=== PATIENT | female | born 1955 | race Caucasian/White ===

== ENCOUNTER 2018-04-17 06:36 | Day surgery (SDC) | payer OTHER, SELFPAY ==
[2018-04-14 15:03] VITALS: BMI 30.1
[2018-04-17] VITALS (9 sets, daily range): BP systolic 134–165; BP diastolic 75–95; PULSE 61–75; RESP 15–22; TEMP 36.4–36.6; O2SAT 92–99; BMI 30.1
[2018-04-17] MEDS: LACTATED RINGERS 1,000 ML 42 ML IV (07:38)
--- NOTE | 2018-04-17 07:59 | PM.PREOP ---
Pre-operative Note Interval Note Pre-op Check: History & Physical Reviewed by Physician H&P completed within 30 days and has changed as indicated here:: No Changes.
[2018-04-17] MEDS: CEFAZOLIN 2 GM/100 ML FROZ.PIGGY IV (08:02)
--- NOTE | 2018-04-17 08:23 | SUR.OPER ---
Supine on padded OR bed, head on pillow, arms secured on padded arm boards at <90 degrees abduction, right leg draped free, tape over blanket on left leg, safety belt at abdomen.
[2018-04-17] MEDS: MORPHINE-PF 10 MG/10 ML INJ INTRA-ARTI (08:33)
[2018-04-17] MEDS: SODIUM CHLORIDE IRRIG SOLUTION 3,000 ML, EPINEPHrine 1 MG IRR (08:34)
[2018-04-17] MEDS: ROPIVACAINE 0.2% PF 2 MG/ML 10ML AMP 10 ML INTRA-ARTI (08:35)
[2018-04-17] MEDS: fentaNYL 100 MCG/2 ML INJ 50 MCG IV ×4 (09:10→09:35)
--- NOTE | 2018-04-17 09:24 | P.OP_ITS ---
Operative Date/Time/Diagnoses - Date of procedure: 04/17/18 Time of procedure: 08:21 Pre-op diagnosis: Right knee medial meniscus tear Post-op diagnosis: other (Right knee medial meniscus tear, right knee patellar chondromalacia) Procedure & Clinicians Procedure: 1. Right knee arthroscopy with partial medial meniscus debridement with medial femoral condyle and medial tibial plateau chondroplasty. 2. Right knee arthroscopy with patellar chondroplasty. Same procedure as scheduled: No (Patellar chondroplasty added to procedure) Indications: This is a 62-year-old female who had right knee pain that began insidiously in October of 2017. Pain was primarily in the posterior aspect of the knee. She also reported feeling of fullness. She continued to have pain despite activity modification and home exercise plan. Her primary care provider obtained an MRI that showed a medial meniscus posterior horn tear as well as tricompartmental degenerative changes. The risks benefits indications expectations of treatment option were discussed with the patient. The risks of surgery to include but not limited to infection, bleeding, damage to neurovascular structures, persistent or worsening pain especially in the setting of arthritis, stiffness, recurrent meniscal tears, deep vein thrombosis , pulmonary embolism, iatrogenic chondromalacia, loss of limb and loss of life were discussed with the patient. All questions were answered, the patient elected to proceed with surgery and informed consent was obtained. Surgeon: Caitlin Astudillo Yes if Unassisted: Yes Anesthesia Type: General (LMA) and Local (5 mg of Duramorph and 5 mg of 0.2 opivacaine without epinephrine.) Operative Notes Findings: 1. Diffuse grade 3 with focal grade 4 chondromalacia of the patella. 2. Grade 2 chondromalacia of the trochlea. 3. Diffuse grade 4 chondromalacia of the medial femoral condyle. 4. Diffuse grade 2 and 3 chondromalacia of the tibial plateau. 5. Root tear of the medial meniscus as well as fraying of the medial meniscal margin at the body. 6. Grade 2 chondromalacia of the lateral tibial plateau. 7. 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 Closure Type: primary Specimen(s): none sent Implants & Drains: None. Estimated Blood Loss (mL): 1 Blood products transfused: none Tourniquet time (min): 0 Procedure in detail: The patient was met in the preoperative hold area on the morning of surgery were reconfirmed that we had the correct patient, we will plan to do the correct procedure and had the correct extremity which was the right lower extremity identified. Prior to the patient receiving any medications the operative extremity was initialed by the surgeon. The patient was then brought back to the operating room in stable condition and placed supine on the operating room table. All bony prominences were well padded and sequential compression devices placed on the nonoperative leg. General anesthesia was induced without complication and LMA was placed. The right lower extremity was then examined under anesthesia and found to have range of motion from 0-135 degrees, was stable to varus and valgus at both 0 and 30?, had negative anterior and negative posterior drawer and negative pivot shift. The right lower extremity was then prepped and draped in the usual sterile fashion. After final draping additional ChloraPrep was utilized on the operative site. We then held a surgical time-out we confirmed that we had the correct patient, we were planning to do the correct procedure and had the correct extremity which was the right lower extremity identified. We also confirmed the patient received preoperative antibiotics, that all necessary gear was in the room and confirmed sterile and that no members of the operative team had any concerns. I began making a standard anterior lateral portal by 1st sharply incising the skin within the #11 blade and then inserting a trocar with a blunt introducer into the patellofemoral joint. I then inserted the camera and began my examination. Immediately on entering the patellofemoral compartment degenerative joint changes of the patella were identified with diffuse grade 3 and 4 chondromalacia. The trochlea had grade 2 chondromalacia. I then examined the lateral gutter which was without loose bodies. I then continued on to the medial compartment, where under direct visualization I made a standard anterior medial portal again by incising with a #11 blade. I then introduced the blunt introducer to further establish the portal. I then induced a probe to continue examination. There is diffuse grade 4 chondromalacia of the medial femoral condyle. There was diffuse grade 3 chondromalacia of the tibial plateau. The free edge of the medial meniscus at the body had some fraying. The posterior horn of the medial meniscus was torn and had abnormal motion. I then inserted a sucker shaver and debrided the loose cartilage from the medial femoral condyle. I then inserted a biter and debrided the posterior horn of the medial meniscus. I inserted a sucker shaver to further debride and clean the medial meniscus to include the fraying on the free edge. I then continued my examination to the notch which showed the ACL and PCL to be intact. I then continued into the lateral compartment where there was some focal grade 2 chondromalacia of the lateral tibial plateau. Lateral meniscus was intact and the lateral femoral condyle was without significant lesions. I then brought the knee out to extension and inserted a sucker shaver and debrided the patella of any loose cartilage. I then removed all arthroscopic equipment. The portals were closed utilizing 3-0 Biosyn in a buried fashion. Placed Mastisol and Steri-Strips over each of the portal incisions. I then injected the knee with 5 mg of Duramorph and 5 mg of 0.2% ropivacaine without epinephrine. I then dressed the wounds with sterile Xeroform , plain gauze and an ABD pad. I then placed a Mathew hose over the dressing. All sponge counts and needle counts were correct at the conclusion of the case. The patient was woken from general anesthesia without complication taken to the PACU in stable condition. Complications: none Condition: stable Disposition: PACU Plan for aftercare: Patient will be discharged home same day of surgery. She may weightbear as tolerated on her right lower extremity and may range her right knee as tolerated. I will see the patient back in 10-14 days for wound check at which time we will initiate physical therapy.
[2018-04-17] MEDS: OXYCODONE/ACETAMINOPHEN 5/325 TABLET 1 TAB PO (09:39)
[2018-04-17] MEDS: ONDANSETRON 4 MG/2 ML INJ IV (10:26)
--- NOTE | 2018-04-17 10:27 | SUR.PHASEII ---
c/o mild nause. zofran per orders. also queaze ease provided.
--- NOTE | 2018-04-17 10:30 | SUR.PHASEII ---
states nausea is resolving.
--- NOTE | 2018-04-17 10:40 | SUR.PHASEII ---
now vomiting. sates feels better after vomiting. discharge on hold at this time. will evaluate for furthur vomiting or resolution.
--- NOTE | 2018-04-17 11:03 | SUR.PHASEII ---
up ambulatory in department tolerating without difficulty, good pain control nausea resolved. discharged home.
== END 2018-04-17 11:04 | disposition home or self-care (01) ==
PROVIDERS: Visit Provider Orthopaedic Surgery
PROC: (CPT 29870; principal; 2018-04-17 07:45)
DX: S83.241A Other tear of medial meniscus, current injury, right knee, initial encounter (principal); M22.41 Chondromalacia patellae, right knee; M94.261 Chondromalacia, right knee
CPT/HCPCS: 29881; J0171; J0690; J1100; J2274; J2405; J2704; J2795; J3010

== ENCOUNTER 2018-06-06 17:41 | Emergency (ER) | payer OTHER, SELFPAY ==
[2018-06-06 18:05] VITALS: BP 140/80; PULSE 81; RESP 20; TEMP 36.6; O2SAT 98
--- NOTE | 2018-06-06 18:35 | ED.PREGNANCY ---
HPI - General Chief complaint: Urogenital-Female Stated complaint: BLADDER INFEC Time Seen by Provider: 06/06/18 18:35 Source: patient Mode of arrival: ambulatory Limitations: no limitations History of Present Illness HPI Narrative: 62-year-old female here for complaint of having increased urinary frequency and dysuria that started this afternoon. She states that she feels like she has urinary tract infection. Denies any abdominal pain. No flank pain. No fevers no chills. Positive p.o. intake. She denies any nausea or vomiting. She denies any other concerns or complaints. Related Data Home Medications Medication Instructions Recorded Confirmed levothyroxine [Synthroid] 75 mcg PO DAILY 04/14/18 04/17/18 pravastatin 40 mg PO BEDTIME 04/14/18 04/17/18 Allergies Allergy/AdvReac Type Severity Reaction Status Date / Time No Known Drug Allergies Allergy Verified 04/14/18 15:06 Review of Systems Constitutional Denies chills, Denies fever(s), Denies lethargy and Denies weakness Eyes Denies change in vision, Denies eye discharge, Denies irritation and Denies loss of vision ENT Ears, Nose, Mouth, and Throat: Denies change in voice, Denies neck pain and Denies sore throat Cardiovascular Denies chest pain, Denies irregular heart rhythm, Denies lightheadedness, Denies palpitations, Denies dyspnea, Denies dyspnea on exertion and Denies orthopnea Respiratory Denies cough, Denies dyspnea, Denies dyspnea on exertion and Denies wheezing Gastrointestinal Gastrointestinal: Denies abdominal pain, Denies change in bowel habits, Denies diarrhea, Denies nausea and Denies vomiting Genitourinary Reports dysuria Musculoskeletal Denies neck pain Neurologic Denies loss of vision and Denies weakness Endocrine Denies palpitations Allergic/Immunologic Denies wheezing Exam Initial Vital Signs Initial Vital Signs: Vital Signs Temperature 97.8 F 06/06/18 18:05 Pulse Rate 81 06/06/18 18:05 Respiratory Rate 20 06/06/18 18:05 Blood Pressure 140/80 H 06/06/18 18:05 Pulse Oximetry 98 06/06/18 18:05 Course Orders Ordered: ED Orders 06/06/18 18:10 Urine Culture Stat Urine Microscopic Stat Vital Signs - 8 hr 06/06/18 18:05 Temperature 97.8 F Pulse Rate 81 Respiratory Rate 20 Blood Pressure 140/80 H Pulse Oximetry 98 MDM - OB/Uterine Contractions Lab Data Lab Results 06/06/18 Range/Units 18:10 Urine RBC 30-100/hpf H (0-5/HPF) Urine WBC 30-100/hpf H (0-5/HPF) Ur Squamous Epith Cells None seen Urine Bacteria Moderate (10-30) H (None) Ur Culture Indicated? Specimen cultured Micro UA Comment Not Reportable Discharge Plan Departure Prescriptions: No Action pravastatin 40 mg Tablet 40 mg PO BEDTIME RF: 0 levothyroxine [Synthroid] 75 mcg Tablet 75 mcg PO DAILY RF: 0
[2018-06-06 18:36] LABS: Bacteria Urine Moderate (10-30); Culture Indicated Urine Specimen Cultured; RBC Urine 30-100/HPF (0-5/HPF); Squamous Epithelial Cell Urine None Seen; WBC Urine 30-100/HPF (0-5/HPF)
--- NOTE | 2018-06-06 18:50 | ED.FEMALEGU ---
HPI - Female Genitourinary <LEXI Carmona - Last Filed: 06/06/18 22:36> General Chief complaint: Urogenital-Female Stated complaint: BLADDER INFEC Time Seen by Provider: 06/06/18 18:35 Source: patient Mode of arrival: ambulatory Limitations: no limitations History of Present Illness HPI Narrative: 62-year-old female here for complaint of having increased urinary frequency and dysuria that started this afternoon. She states that she feels like she has urinary tract infection. Denies any abdominal pain. No flank pain. No fevers no chills. Positive p.o. intake. She denies any nausea or vomiting. She denies any other concerns or complaints. MD Complaint: UTI Related Data Home Medications Medication Instructions Recorded Confirmed levothyroxine [Synthroid] 75 mcg PO DAILY 04/14/18 04/17/18 pravastatin 40 mg PO BEDTIME 04/14/18 04/17/18 Previous Rx's Medication Instructions Recorded nitrofurantoin monohyd/m-cryst 100 mg PO BID #13 cap 06/06/18 [Macrobid] phenazopyridine [Pyridium] 200 mg PO TID PRN #5 tab 06/06/18 Allergies Allergy/AdvReac Type Severity Reaction Status Date / Time No Known Drug Allergies Allergy Verified 04/14/18 15:06 Review of Systems <LEXI Carmona - Last Filed: 06/06/18 22:36> Constitutional Denies chills, Denies fever(s), Denies lethargy and Denies weakness Eyes Denies change in vision, Denies eye discharge, Denies irritation and Denies loss of vision ENT Ears, Nose, Mouth, and Throat: Denies change in voice, Denies neck pain and Denies sore throat Cardiovascular Denies chest pain, Denies irregular heart rhythm, Denies lightheadedness, Denies palpitations, Denies dyspnea, Denies dyspnea on exertion and Denies orthopnea Respiratory Denies cough, Denies dyspnea, Denies dyspnea on exertion and Denies wheezing Gastrointestinal Gastrointestinal: Denies abdominal pain, Denies change in bowel habits, Denies diarrhea, Denies nausea and Denies vomiting Genitourinary Reports dysuria Musculoskeletal Denies neck pain Integumentary/Breasts Denies pruritus, Denies erythema, Denies rash and Denies wounds Neurologic Denies confusion, Denies loss of vision and Denies weakness Psychiatric Denies anxiety, Denies confusion, Denies depression, Denies homicidal ideation and Denies suicidal ideation Endocrine Denies palpitations Hematologic/Lymphatic Denies easy bruising Allergic/Immunologic Denies wheezing Exam <LEXI Carmona - Last Filed: 06/06/18 22:36> Initial Vital Signs Initial Vital Signs: Vital Signs Temperature 97.8 F 06/06/18 18:05 Pulse Rate 81 06/06/18 18:05 Respiratory Rate 20 06/06/18 18:05 Blood Pressure 140/80 H 06/06/18 18:05 Pulse Oximetry 98 06/06/18 18:05 Const General: cooperative and well developed Nutritional Appearance: well nourished Orientation: alert, awake, oriented x3 and not confused HENNE Mouth: oral mucosae normal and moist mucous membranes Eyes Conjunctivae: conjunctivae normal Sclera: sclerae normal Pupils: PERRL EOM: EOM intact bilaterally Resp Effort & Inspection: normal respiratory effort, able to speak in complete sentences, no respiratory distress and no use of accessory muscles Auscultation: clear to auscultation bilaterally, no rales, no rhonchi and no wheezes Cardio Rate: regular rate Rhythm: regular rhythm Heart Sounds: no click, no gallops, no murmurs and no rubs Pulses: normal peripheral pulses GI Inspection: non-distended Palpation: soft, no hepatosplenomegaly, No guarding, No pulsatile mass and No tender Auscultation: normal bowel sounds Back/Spine/Pelvis Back: No CVA tenderness Skin General: no rashes or lesions noted, No jaundice and No petechiae Neuro General: alert, oriented x3, gait normal and no focal motor deficits Speech: speech normal <Amberly Almazan DO - Last Filed: 06/07/18 00:22> Initial Vital Signs Initial Vital Signs: Vital Signs Temperature 97.8 F 06/06/18 18:05 Pulse Rate 81 06/06/18 18:05 Respiratory Rate 20 06/06/18 18:05 Blood Pressure 140/80 H 06/06/18 18:05 Pulse Oximetry 98 06/06/18 18:05 Course <LEXI Carmona - Last Filed: 06/06/18 22:36> Orders Ordered: ED Orders 06/06/18 18:10 Urine Culture Stat Urine Microscopic Stat Discontinued Medications Nitrofurantoin Macrocrystals (Macrobid 100 Mg Capsule) 100 mg PO NOW ONE Stop: 06/06/18 18:49 Last Admin: 06/06/18 18:53 Dose: 100 mg Phenazopyridine HCl (Pyridium) 200 mg PO NOW ONE Stop: 06/06/18 18:49 Last Admin: 06/06/18 18:53 Dose: 200 mg Vital Signs - 8 hr 06/06/18 18:05 06/06/18 19:09 Temperature 97.8 F 97.8 F Pulse Rate 81 72 Respiratory Rate 20 18 Blood Pressure 140/80 H Blood Pressure [Left Arm] 130/85 H Pulse Oximetry 98 98 <Amberly Almazan DO - Last Filed: 06/07/18 00:22> Orders Ordered: ED Orders 06/06/18 18:10 Urine Culture Stat Urine Microscopic Stat Discontinued Medications Nitrofurantoin Macrocrystals (Macrobid 100 Mg Capsule) 100 mg PO NOW ONE Stop: 06/06/18 18:49 Last Admin: 06/06/18 18:53 Dose: 100 mg Phenazopyridine HCl (Pyridium) 200 mg PO NOW ONE Stop: 06/06/18 18:49 Last Admin: 06/06/18 18:53 Dose: 200 mg Vital Signs - 8 hr 06/06/18 18:05 06/06/18 19:09 Temperature 97.8 F 97.8 F Pulse Rate 81 72 Respiratory Rate 20 18 Blood Pressure 140/80 H Blood Pressure [Left Arm] 130/85 H Pulse Oximetry 98 98 MDM - Female Genitourinary <LEXI Carmona - Last Filed: 06/06/18 22:36> Lab Data Lab Results 06/06/18 Range/Units 18:10 Urine RBC 30-100/hpf H (0-5/HPF) Urine WBC 30-100/hpf H (0-5/HPF) Ur Squamous Epith Cells None seen Urine Bacteria Moderate (10-30) H (None) Ur Culture Indicated? Specimen cultured Micro UA Comment Not Reportable MDM Narrative Medical decision making narrative: Urinalysis was obtained was positive for urinary tract infection. She is prescribed Macrobid. She is also prescribed Pyridium to help with any discomfort for the next couple of days. Follow up with primary care provider later this week. Plenty of fluids. Return emergency room for any worsening symptoms. <Amberly Almazan DO - Last Filed: 06/07/18 00:22> Lab Data Lab Results 06/06/18 Range/Units 18:10 Urine RBC 30-100/hpf H (0-5/HPF) Urine WBC 30-100/hpf H (0-5/HPF) Ur Squamous Epith Cells None seen Urine Bacteria Moderate (10-30) H (None) Ur Culture Indicated? Specimen cultured Micro UA Comment Not Reportable Discharge Plan Departure Patient Disposition: Home, Self-Care Clinical Impression: Urinary tract infection Discharge Date/Time: 06/06/18 19:16 Interventions: ED Discharge Assessment Last Done: 06/06/18 19:16 Instructions: DI for Urinary Tract Infection (UTI) Activity Restrictions/Additional Instructions: Urinalysis indicates urinary tract infection. Urine been placed on antibiotic called Macrobid use as directed. You have also been placed on Pyridium to help with the discomfort with urination also use as directed be advised that the Pyridium will turn your urine orange. Follow up with her primary care provider next week for re-evaluation. Plenty of fluids. First treatments were given in the emergency room this evening due to pharmacies being closed. Fill prescriptions tomorrow morning and take as directed Prescriptions: New phenazopyridine [Pyridium] 200 mg tablet 200 mg PO TID PRN (Reason: pain) Qty: 5 RF: 0 nitrofurantoin monohyd/m-cryst [Macrobid] 100 mg capsule 100 mg PO BID Qty: 13 RF: 0 No Action pravastatin 40 mg Tablet 40 mg PO BEDTIME RF: 0 levothyroxine [Synthroid] 75 mcg Tablet 75 mcg PO DAILY RF: 0 Referrals: Celeste Stock [Primary Care Provider] - <Amberly Almazan DO - Last Filed: 06/07/18 00:22> Cosign ED Attending Michelleature Attestation: I was immediately available in the department for consultation. Documentation has been reviewed. I agree with assessment and plan.
[2018-06-06] MEDS: NITROFURANTOIN ER 100 MG CAPSULE PO (18:53)
[2018-06-06] MEDS: PHENAZOPYRIDINE 100 MG TABLET 200 MG PO (18:53)
[2018-06-06 19:09] VITALS: BP 130/85; PULSE 72; RESP 18; TEMP 36.6; O2SAT 98
== END 2018-06-06 19:16 | disposition home or self-care (01) ==
PROVIDERS: Emergency Provider Nurse Practitioner Family; PCP Nurse Practitioner Family
DX: N39.0 Urinary tract infection, site not specified (principal)
CPT/HCPCS: 81003; 81015; 87077; 87086; 87186; 99282; 99283

== ENCOUNTER → 2018-08-07 09:28 | Outpatient (CLI) | payer OTHER, SELFPAY ==
--- NOTE | 2018-08-07 | DI.MRI.S_ITS ---
PROCEDURE: MR SHOULDER RT W CON INDICATIONS: PAIN IN RIGHT SHOULDER TECHNIQUE: After the administration of 12 mL of dilute intra-articular Gadolinium contrast, oblique coronal T1 and T2 spin echo with fat saturation, oblique sagittal T1 spin echo with and without fat saturation, oblique sagittal T2 fast spin echo with fat saturation, axial T1 spin echo with fat saturation through the shoulder. COMPARISON: None. FINDINGS: Image quality: Excellent. Rotator cuff: There is tendinosis and low-grade articular surface partial-thickness tear involving distal supraspinatus at its insertion on greater tuberosity of humeral head extending to the level of the musculotendinous junction. Distal infraspinatus tendinosis is seen. Distal subscapularis tendon is intact. No full-thickness rotator cuff tendon rupture. Mild supraspinatus muscle atrophy is seen on sagittal images. Bones and bursae: No bone marrow contusions or fractures. Moderate acromioclavicular joint osteoarthritis is seen. Mild glenohumeral joint osteoarthritis is also noted. The acromion demonstrates conventional anatomy, without an os acromiale. Capsule and soft tissues: There is contrast extension into superior anterior labrum at 12 to 1:00 position, consistent with a superior anterior labral tear. Glenohumeral ligaments are intact. long head of the biceps tendon demonstrates normal location and morphology. The rotator interval appears normal, without fibrosis. The coracohumeral ligament is of normal thickness. No intra-articular bodies. IMPRESSION: 1. Findings consistent with superior anterior labral tear at 12 to 1:00 position. 2. Mild to moderate acromioclavicular joint and glenohumeral joint osteoarthritis. No fracture or dislocation. 3. Tendinosis and low to moderately articular surface partial-thickness tear involving distal supraspinatus. Distal infraspinatus tendinosis. No full-thickness rotator cuff tendon rupture. Very mild supraspinatus muscle atrophy. Dictated by: Terrance Harrington M.D. on 08/07/2018 at 11:56 Approved by: Terrance Harrington M.D. on 08/07/2018 at 12:01
--- NOTE | 2018-08-07 | DI.RAD.S_ITS ---
PROCEDURE: FL SHOULDER INJECTION MR/CT RT INDICATIONS: PAIN IN RIGHT SHOULDER TECHNIQUE: The indications, alternatives, benefits, risks, and complications of the procedure were explained to the patient. Written informed consent was obtained and placed in the chart. The shoulder was examined fluoroscopically and a site for needle placement chosen for entry into the glenohumeral joint from an anterior approach. The skin was prepped and draped in a sterile fashion, and 1% lidocaine infiltrated from skin down to joint capsule. A spinal needle was inserted into the glenohumeral joint, and a small amount of iodinated contrast media injected to confirm intra-articular placement of the needle tip. This was followed by approximately 12 mL dilute solution of a gadolinium containing MR contrast agent. The needle was removed and a dressing was applied. The patient was given postprocedural instructions and sent to the MR suite for MR imaging. FINDINGS: A single fluoroscopic spot image demonstrates intra-articular location of injected iodinated contrast. IMPRESSION: Successful fluoroscopically guided administration of dilute Gadolinium solution into the shoulder joint for MR arthrogram. Dictated by: Nori Vang M.D. on 08/07/2018 at 10:30 Approved by: Nori Vang M.D. on 08/07/2018 at 10:30
== END ==
PROVIDERS: PCP Nurse Practitioner Family; Visit Provider Nurse Practitioner Family
DX: M19.011 Primary osteoarthritis, right shoulder (principal); S43.431A Superior glenoid labrum lesion of right shoulder, initial encounter; M25.511 Pain in right shoulder
CPT/HCPCS: 23350; 73040; 73222; 77002

== ENCOUNTER 2018-09-11 08:54 | Emergency (ER) | payer OTHER, SELFPAY ==
[2018-09-11 09:03] VITALS: BP 156/89; PULSE 75; RESP 18; TEMP 36.4; O2SAT 99; BMI 31.8
[2018-09-11 09:08] LABS: Bacteria Urine None Seen
[2018-09-11 09:21] LABS: RBC Urine 5-10/HPF (0-5/HPF); WBC Urine 5-10/HPF (0-5/HPF)
[2018-09-11 09:22] LABS: Culture Indicated Urine Specimen Cultured
--- NOTE | 2018-09-11 09:27 | ED.FEMALEGU ---
HPI - Female Genitourinary General Chief complaint: Urogenital-Female Stated complaint: bladder infection Time Seen by Provider: 09/11/18 09:03 Source: patient Mode of arrival: ambulatory Limitations: no limitations History of Present Illness HPI Narrative: 63-year-old, otherwise healthy nonsmoking female presents with a chief complaint of dysuria, frequency and urgency since yesterday. She denies nausea, vomiting or diarrhea. She has had no back pain nor fever or shaking chills. She has had urinary tract infections in the past and states this feels similar. MD Complaint: dysuria and UTI Onset (ago): day(s) Female Urogenital Radiation: Non-Radiating Severity: mild Quality: Aching and Burning Duration: constant Relieving factors: none Exacerbating factors: urination Urinary symptoms: Difficulty Urinating, Dysuria, Frequency and Urgency Associated symptoms: denies other symptoms Related Data Home Medications Medication Instructions Recorded Confirmed levothyroxine [Synthroid] 75 mcg PO DAILY 04/14/18 04/17/18 pravastatin 40 mg PO BEDTIME 04/14/18 04/17/18 Previous Rx's Medication Instructions Recorded nitrofurantoin monohyd/m-cryst 100 mg PO BID #13 cap 06/06/18 [Macrobid] phenazopyridine [Pyridium] 200 mg PO TID PRN #5 tab 06/06/18 cephalexin [Keflex] 500 mg PO QID #7 cap 09/11/18 Allergies Allergy/AdvReac Type Severity Reaction Status Date / Time No Known Drug Allergies Allergy Verified 04/14/18 15:06 Review of Systems Review of Systems All systems reviewed & are unremarkable except as noted in HPI and below Constitutional Denies chills, Denies fever(s), Denies lethargy and Denies weakness Eyes Denies change in vision, Denies eye discharge, Denies irritation and Denies loss of vision ENT Ears, Nose, Mouth, and Throat: Denies change in voice, Denies neck pain and Denies sore throat Cardiovascular Denies chest pain, Denies irregular heart rhythm, Denies lightheadedness, Denies palpitations, Denies dyspnea, Denies dyspnea on exertion and Denies orthopnea Respiratory Denies cough, Denies dyspnea, Denies dyspnea on exertion and Denies wheezing Gastrointestinal Gastrointestinal: Denies abdominal pain, Denies change in bowel habits, Denies diarrhea, Denies nausea and Denies vomiting Genitourinary Denies hematuria, Reports dysuria, Denies flank pain, Denies urinary incontinence, Reports urinary hesitancy and Reports urinary urgency Musculoskeletal Denies neck pain Integumentary/Breasts Denies pruritus, Denies erythema, Denies rash and Denies wounds Neurologic Denies confusion, Denies loss of vision and Denies weakness Psychiatric Denies anxiety, Denies confusion, Denies depression, Denies homicidal ideation and Denies suicidal ideation Endocrine Denies palpitations Hematologic/Lymphatic Denies easy bruising Allergic/Immunologic Denies wheezing [facility] Medical History GERD (gastroesophageal reflux disease) (Acute) Hyperlipidemia (Acute) Hypothyroidism (Acute) Right knee pain (Acute) Surgical History Hx of cataract surgery (Acute) S/P debridement (Acute) Social History household members: spouse Smoking Status: Never smoker alcohol intake: current Exam Narrative Exam Narrative: GEN: AOx3 and in mild distress EYES: Pupils are equal, round, and reactive to light and accommodation. Extraoccular muscles are intact bilaterally. There is no subconjunctival hemorrhage or exudate. CHEST: Lungs are clear to auscultation bilaterally and free of wheezes, rales, or rhonchi. Heart rate is regular rhythm, there are no murmurs, clicks, rubs, or gallops. There is no chest wall tenderness. ABD: Abdomen is soft and nontender. There is no guarding or rebound. Bowel sounds are normal in all 4 quadrants. There is no mass or organomegaly. EXT: Full painless ROM of all extremities with no loss of sensation or strength. SKIN: Warm, pink, and dry. No erythema or rash Initial Vital Signs Initial Vital Signs: Vital Signs Temperature 97.5 F L 09/11/18 09:03 Pulse Rate 75 09/11/18 09:03 Respiratory Rate 18 09/11/18 09:03 Blood Pressure 156/89 H 09/11/18 09:03 Pulse Oximetry 99 09/11/18 09:03 Course Orders Ordered: ED Orders 09/11/18 08:55 Urine Culture Stat Urine Microscopic Stat Vital Signs - 8 hr 09/11/18 09:03 Temperature 97.5 F L Pulse Rate 75 Respiratory Rate 18 Blood Pressure 156/89 H Pulse Oximetry 99 MDM - Female Genitourinary Lab Data Lab Results 09/11/18 Range/Units 08:55 Urine RBC 5-10/hpf H (0-5/HPF) Urine WBC 5-10/hpf H (0-5/HPF) Urine Bacteria None seen (None) Ur Culture Indicated? Specimen cultured Micro UA Comment Not Reportable Urine Dip Bedside Urine Glucose Negative Bedside Urine Bilirubin - Negative Bedside Urine Ketone - Negative Urine Specific [place] 1.010 Bedside Urine Occult Blood ++ Bedside Urine pH 6.0 Bedside Urine Protein - Negative Bedside Urine Urobilinogen - Negative Bedside Urine Nitrite - Negative Bedside Urine Leukocytes ++ 125 Esterase Discharge Plan Departure Patient Disposition: Home Clinical Impression: Acute UTI Discharge Date/Time: 09/11/18 09:42 Interventions: ED Discharge Assessment Last Done: 09/11/18 09:42 Instructions: DI for Urinary Tract Infection (UTI) Activity Restrictions/Additional Instructions: *You have been diagnosed with [acute UTI ] *What to do: *Take medications as directed *Follow up with your primary care provider in 2-3 days, call for an appointment. Let them know you were seen in the Emergency Department and that we ask that you be seen in follow up *Return to ER if you should have any new, worsening or concerning symptoms Prescriptions: New cephalexin [Keflex] 500 mg capsule 500 mg PO QID Qty: 7 RF: 0 No Action phenazopyridine [Pyridium] 200 mg tablet 200 mg PO TID PRN (Reason: pain) Qty: 5 RF: 0 nitrofurantoin monohyd/m-cryst [Macrobid] 100 mg capsule 100 mg PO BID Qty: 13 RF: 0 pravastatin 40 mg Tablet 40 mg PO BEDTIME RF: 0 levothyroxine [Synthroid] 75 mcg Tablet 75 mcg PO DAILY RF: 0 Referrals: Celeste Stock [Primary Care Provider] -
== END 2018-09-11 09:42 | disposition home or self-care (01) ==
PROVIDERS: Emergency Provider Emergency Medicine; PCP Nurse Practitioner Family
DX: N39.0 Urinary tract infection, site not specified (principal)
CPT/HCPCS: 81003; 81015; 87077; 87086; 87186; 99282; 99283

== ENCOUNTER 2019-12-15 13:00 | Observation (INO) | payer MEDICARE, OTHER, SELFPAY ==
[2019-12-08 13:56] VITALS: BMI 34.5
[2019-12-14] VITALS (13 sets, daily range): BP systolic 101–143; BP diastolic 59–84; PULSE 60–71; RESP 11–17; TEMP 36.2–36.6; O2SAT 93–99; BMI 33.4
--- NOTE | 2019-12-14 06:00 | DI.RAD.S_ITS ---
PROCEDURE: XR KNEE LT 1TO2V INDICATIONS: post op films TECHNIQUE: 2 view(s) of the knee acquired. COMPARISON: None. FINDINGS: Bones: Patient is status post knee joint arthroplasty. Hardware components are in expected positions. Visualized bony structures are intact. Soft tissues: Overlying postoperative changes are noted. IMPRESSION: Normal alignment after left total knee arthroplasty. Dictated by: Nasir Lazaro M.D. on 12/14/2019 at 14:34 Approved by: Nasir Lazaro M.D. on 12/14/2019 at 14:34
[2019-12-14] MEDS: PREGABALIN 75 MG CAPSULE PO (08:38)
[2019-12-14] MEDS: CELECOXIB 200 MG CAPSULE PO (08:38)
[2019-12-14] MEDS: ACETAMINOPHEN 325 MG TABLET 975 MG PO (08:38)
[2019-12-14] MEDS: LACTATED RINGERS 1,000 ML 42 ML IV ×2 (08:51→12:08)
--- NOTE | 2019-12-14 09:48 | PM.PREOP ---
Pre-operative Note Interval Note History & Physical reviewed/Exam performed by Physician: Yes Changes to H&P: No
--- NOTE | 2019-12-14 10:01 | PM.OP.1 ---
Operative Date/Time/Diagnoses Date of procedure: 12/14/19 Time of procedure: 12:00 Pre-op diagnosis: Left knee osteoarthritis Post-op diagnosis: same Procedure & Clinicians Procedure: Left total knee replacement Same procedure as scheduled: Yes Indications: The patient has had progressively worsening left knee pain with radiographic changes consistent with arthritis. Non-operative management has failed and the patient has requested total knee replacement. The risks, benefits and alternatives to surgery were discussed with the patient prior to proceeding. Risks discussed included, but were not limited to, failure to relieve pain, stiffness, infection, nerve damage, deep venous thrombosis, pulmonary embolism, stroke, coma, heart attack, permanent paralysis and , as well as the potential need for eventual revision of the prosthetic. Surgeon: Luigi Shah Computer Video Game Designer: Odell Taylor Click Yes if Unassisted: No Anesthesia Type: General, Spinal and Local Operative Notes Findings: Tricompartmental osteoarthritis worst in the medial compartment. Closure Type: primary Specimen(s): none sent Prosthetic devices, grafts, tissues, transplants, or devices: Implants used in this procedure were manufactured by the [employer] and [employer] and included the BCS II Journey total knee replacement with a size 4 left Oxinium femoral component, a size 3 left non porous tibial base plate, a 9 mm cross-linked polyethylene tibial insert and a 32 mm round Teresa II patellar component. Applied: implant(s) Estimated Blood Loss (mL): 25 Blood products transfused: none Tourniquet time (min): 49 Procedure in detail: The patient was seen in the pre-operative area, where the left knee was identified as the operative site and this was marked with my initials. The patient received pre-operative antibiotics, and was taken to the operating room and placed on the operative table in the supine position. After satisfactory anesthesia, a time lock expert out was performed. The left leg was encircled with a tourniquet about the proximal thigh, and the leg was prepared from the toes to the tourniquet with ChloroPrep in the usual fashion and draped through sterile drapes. The leg was elevated and exsanguinated with Eschmark bandage and the tourniquet inflated to 250 mmHg pressure. The knee was approached through an approximately 18 cm incision centered over the patella and carried into the knee through a medial parapatellar arthrotomy. The anterior osteophytes and soft tissues were removed. The rotational landmarks of Russell's line and the transepicondylar axis were marked on the femur with electrocautery, and intramedullary guide holes for the femur and tibia were created. The distal femoral cut was made in 6 degrees of valgus using the intramedullary guide at the primary cut setting. The proximal tibial cut was then made using the intramedullary guide, taking 9 mm of bone off the less involved side. The extension gap was checked and the rotation of the femoral component confirmed with the gap balancing blocks. The anterior, posterior and chamfer cuts were then made. The posterior osteophytes and soft tissues were then removed. The posterior capsule was injected with part of a mixture of 60 ml 0.25% Marcaine mixed with 20 ml Exparel and 4 mg of morphine for post-operative pain control. The remainder of this mixture was injected into the capsule and subcutaneous tissues during cement curing. The tibia was prepared with the rotation set by an extra medullary guide. Trial tibial and femoral components were then placed and the intercondylar notch cut through the femoral trial. Range of motion was 0-135 degrees, with good stability throughout the range. The patella was then cut to accommodate the patellar prosthetic. There was no need for a lateral release. The trials were then removed, and the femoral hole plugged with a bone plug. The bone was prepared with pulsatile lavage, and dried with a sponge. Cement was applied and the final prosthetics placed. Excess cement was removed during and after cement curing. After confirming there was no extruded cement posteriorly, the final tibial insert was placed. The knee was copiously irrigated and the tourniquet deflated. Hemostasis was obtained. The capsule was closed with interrupted # 2 polyester sutures. The subcutaneous layer was closed with 3-0 Vicryl, and the skin with a running 3-0 V-Lock suture and SteriStrips. An Aquacel Ag dressing was applied and the patient was taken to recovery having tolerated the procedure well. Complications: none Post-operative Condition: stable Disposition: PACU Plan for aftercare: The patient will be maintained on a standard total knee replacement protocol with weight bearing as tolerated. The patient will receive aspirin and sequential compression devices for DVT prophylaxis. The patient will be discharged home when safe for the home environment.
[2019-12-14] MEDS: CEFAZOLIN 2 GM/100 ML FROZ.PIGGY IV (10:24)
--- NOTE | 2019-12-14 10:57 | SUR.OPER ---
Supine on padded OR bed. Pillow under head, arms secured on padded armboards <90 degree abduction. Safety belt across torso. Non-operative leg secured with tape over blanket over lower leg. Operative leg secured in DeMayo/Rajesh positioner.
[2019-12-14] MEDS: BUPIVACAINE 0.25% W/ EPI 30 ML VIAL 60 ML INJ (11:11)
[2019-12-14] MEDS: TRANEXAMIC ACID 1,000 MG VIAL 1000 MG INJ ×2 (11:12→11:35)
[2019-12-14] MEDS: BUPIVACAINE LIPOSOME 266 MG/20 ML VIAL INJ (11:12)
[2019-12-14] MEDS: MORPHINE 4 MG/ML INJ INJ (11:12)
--- NOTE | 2019-12-14 12:40 | SUR.PHASEI ---
arouses easily, tolerated x-ray without pain, denied pain/nausea. Returns to sleep easily. Skin warm and dry, resp even and regular.
--- NOTE | 2019-12-14 12:49 | SUR.PHASEI ---
1246 Attempted to call report to floor, nurse unavailable. Pt resting quietly, awake, declines ice chips, water, or juice.
--- NOTE | 2019-12-14 13:31 | PC.NURSE ---
Day shift: Pt on unit at approx 1320. Oriented to room and all light. Agrees to not get OOB without help from staff. Sensation has not completely returned to BLE's. On O2 monitor at 98%. Spouse at bedside for support. Denies any pain or nausea.
--- NOTE | 2019-12-14 13:33 | SUR.PHASEI ---
1316 Pt to room 205, bed down and locked, call light within reach, SCDs on. Spouse to the room, clothing bag in closet.. Pt continues to deny pain/nausea, dressing remains CDI. No questions from staff or patient/spouse. Stable and pleasant. HOB elevated.
[2019-12-14] MEDS: LACTATED RINGERS 1,000 ML 125 ML IV ×2 (13:46→21:17)
[2019-12-14] MEDS: ACETAMINOPHEN 325 MG TABLET 650 MG PO ×2 (14:22→21:16)
--- NOTE | 2019-12-14 17:20 | PT.IIE ---
Current Diagnoses Unilateral primary osteoarthritis, left knee (12/14/19) Surgery Performed Operation Date: 12/14/19 10:15 Actual Procedures p Total Knee Arthroplasty(Left) - Luigi Shah MD Surgical History (Last Updated 12/08/19 @ 14:08 by Nisa Sterling RN) Hx of arthroscopy of right knee (Acute 04/17/18) Hx of bilateral cataract extraction (Acute ~2015) Hx of dilation and curettage (Acute) S/P debridement (Acute) Medical History (Last Updated 12/08/19 @ 14:08 by Nisa Sterling RN) GERD (gastroesophageal reflux disease) (Acute) Hyperlipidemia (Acute) Hypothyroidism (Acute) Osteoarthritis (Acute) Right knee pain (Acute) Physical Therapy Inpatient Evaluation/Re-Eval M1 PT/OT-IP Prior Functional Status Start: 12/14/19 16:01 Freq: NEEDED Status: Active Protocol: Document 12/14/19 16:58 AW (Rec: 12/14/19 17:20 AW [id number]) Medical Review Prior Functional Status Medical History Reviewed Yes Communication WNL. Pt is an effective verbal communicator Mobility and Gait Independent without assistive device but with a limit of ~2 blocks before needing a rest break due to pain. Pt reports limited standing tolerance. Activities of Daily Living and IADL's Independent, including driving Social History Household Members spouse,children Living Arrangements House Number of Floors (Floors) One Floor Number of Stairs To Enter/Railing? 2 RADHA through garage with R rail ascending. Home Environment High Toilet,Walk in Shower, Built-In Shower Seat Home Equipment Front Wheel Walker,Crutches Employment Status Retired Additional Social History Comment Pt lives with her spouse, Kofi, who still works but is planning to be home for several days to assist at discharge. Pt's daughter also lives with her but recently had surgery and will be unable to assist. M2 PT-IP Current Condition Start: 12/14/19 16:01 Freq: NEEDED Status: Active Protocol: Document 12/14/19 16:58 AW (Rec: 12/14/19 17:20 AW [email or web address]) Physical Therapy Current Condition Current Condition Evaluation Date 12/14/19 Treatment Diagnosis L TKA, impaired mobility Onset Date 12/14/19 Weight Bearing Status Weight Bearing Status Weight Bear as Tolerated M3 PT-IP Subjective Start: 12/14/19 16:01 Freq: NEEDED Status: Active Protocol: Document 12/14/19 16:58 AW (Rec: 12/14/19 17:20 AW [email or web address]) Subjective Physical Therapy Visit Type Type Initial Evaluation Visit Start Time 16:22 Visit Stop Time 16:52 Total Visit Minutes 30 Physical Therapy Visit Comments Patient Comments Pt is willing to mobilize with PT Patient Goals Pt hopes to be able to take longer walks and correct her gait pattern. Therapy Pain Assessment Pain When Pain Assessed During Mobility Pain Present Pain Present Pain Reported Location left knee Intensity 1 Scale Used 0/10 at rest; 1/10 with mobility Pain Management Techniques Apply Cold,Re-positioning, Timing of Activity with Medications M4 PT-IP Mobility and Gait Start: 12/14/19 16:01 Freq: NEEDED Status: Active Protocol: Document 12/14/19 16:58 AW (Rec: 12/14/19 17:20 AW [email or web address]) PT-Bed Mobility Assessment Supine to Sit Supine to Sit Standby Assistance,Head of Bed Elevated Scooting Scooting to Edge of Bed Standby Assistance PT-Transfer Assessment Sit to and From Stand Sit to and from Stand Contact Guard Assistance Equipment Transfer Assistive Device Gait Belt,Front Wheeled Walker Orthotic/Prosthetic Devices or Brace: No Transfers Transfer Destination Bed,Chair Transfer Technique pt ambulated with FWW Transfer Ability Level of Assist Contact Guard Assistance Comments Mobility Comments Pt completed supine to sit SBA with HOB elevated ~30 degrees . She was able to sit EOB with and without UE support. She then stood using FWW CGA and responded to cues to equalize weightbearing. She ambulated in the room with FWW but became diaphoretic and nauseous 2 feet from the chair and vomited in standing with forearms on the walker frame for support. Nursing was called for assist with clean up and pt care. Pt was then able to transfer to the chair CGA and with cues to slow descent wtih BUE. Pt was positioned in the chair with call light and all needs within reach, emesis bag on the bedside table. BP before treatment was 128/74 HR 62. After treatment BP was 152/86 HR 68. Gait Assessment Gait Gait Assistance Required: Contact Guard Assist Distance (Feet) 20 Able to Maintain Weight Bearing Status Yes During Gait Assistive Devices Assistive Device Gait Belt,Front Wheeled Walker Orthotic/Prosthetic Devices or Brace: No Gait Deviations General Gait Pattern Antalgic,Decreased Stride Length,Decreased Feet Clearance,Flexed Trunk,Step-to Gait Factors Limiting Gait Function Factors Limiting Gait Function Decreased Activity Tolerance, Decreased Strength,Limited Range of Motion,Pain Comments Gait Comments Pt ambulated ~20 feet in the room with slow halting steps, requiring encouragement to roll the walker along instead of attempting to pick it up. See mobility notes. Stair Climbing Assessment Comments Stair Climbing Comments Not assessed. PT-Balance Assessment Sitting Balance and Reactions Static Sitting Balance Ability Good Dynamic Sitting Balance Ability Good Standing Balance and Reactions Static Standing Balance Ability Good Dynamic Standing Balance Ability Good Device Used FWW M5 PT-IP Objective Assessments Start: 12/14/19 16:01 Freq: NEEDED Status: Active Protocol: Document 12/14/19 16:58 AW (Rec: 12/14/19 17:20 AW [email or web address]) Orientation Orientation/Cognition Level of Alertness Alert Orientation Name,Day of Week,Place, Situation Language Function Ability No Deficits Noted Safety Awareness Understands Safety Issues Memory Description No Deficits Noted Gross Range of Motion Upper Extremity ROM Assessment Within Functional Limits Lower Extremity ROM Assessment Left Impaired Strength Upper Extremity Strength Assessment Within Functional Limits Lower Extremity Strength Assessment Bilaterally Impaired Hip 4-/5 Knee R 4+/5 Ankle R 4/5; L 4-/5 Coordination Assessment Gross Coordination Gross Coordination WNL Sensation Assessment Sensation Gross Sensation Right LE Impaired,Left LE Impaired Comments Sensation Comments Pt reports numbness in bilateral buttocks Muscle Tone Muscle Tone WNL Yes M6 PT-IP Treatment Start: 12/14/19 16:01 Freq: NEEDED Status: Active Protocol: Document 12/14/19 16:58 AW (Rec: 12/14/19 17:20 AW [email or web address]) Physical Therapy Treatment Exercises Exercises Ankle Pumps,Quad Sets Education Education Provided Precautions,Weight Bearing Status,Post-Op Packet,Safety Other Treatments Other Treatment Performed Provided education on role of PT, plan of care, weightbearing status, and safe use of FWW. M7 PT-IP Assessment and Plan Start: 12/14/19 16:01 Freq: NEEDED Status: Active Protocol: Document 12/14/19 16:58 AW (Rec: 12/14/19 17:20 AW [email or web address]) PT Summary Assessment and Plan Potential Rehabilitation Potential Excellent Status of Condition at Evaluation Evolving Summary Impairments Pain,ROM,Strength,Balance,Bed Mobility,Transfers,Gait, Activity Tolerance Assessment Summary Jadyn is a 64 yo woman seen for PT evaluation on POD0 following L TKA. At baseline, she reports limited standing tolerance and independent ambulation up to ~2 blocks without rest break. On evaluation, she required SBA to CGA for all mobility and was limited by nausea and vomiting while ambulating with FWW. PT anticipates she will meet the functional goals of this plan of care and be safe to discharge to home environment [facility] family assist and outpatient PT once medically cleared. Goals Bed Mobility Goal Independent Transfer Goal Independent,Front Wheeled Walker Gait Goal Independent,Front Wheel Walker Gait Distance 200 Other Goals - up/down 2 steps with R rail ascending SBA Days to Meet Goals 2 Frequency of Treatment Frequency Of Treatment Twice a Day Treatment Plan Physical Therapy Treatment Plan Bed Mobility Training,Transfer Training,Gait Training, Therapeutic Exercise,Balance Retraining,Post Op Education, Discharge Planning,Hot or Cold Pack,Neuromuscular Re-ed, Coordination Retraining,Manual Therapy Recommendations To Nursing Amount of Assist Needed 1 Person Assist Discharge Recommendations PT Discharge Recommendations Home with Assistance, Outpatient PT Transportation Needs at Discharge Private Vehicle
[2019-12-14] MEDS: ONDANSETRON 4 MG/2 ML INJ IV (18:29)
[2019-12-14] MEDS: DOCUSATE 100 MG CAPSULE PO (21:16)
[2019-12-14] MEDS: PRAVASTATIN 20 MG TABLET 40 MG PO (21:16)
[2019-12-14] MEDS: ASPIRIN EC 81 MG TABLET PO (21:16)
[2019-12-15] VITALS (10 sets, daily range): BP systolic 110–144; BP diastolic 56–75; PULSE 60–74; RESP 16–17; TEMP 36.2–36.9; O2SAT 93–98
[2019-12-15] MEDS: OXYCODONE IR 5 MG TABLET 10 MG PO ×3 (00:13→11:57)
[2019-12-15] MEDS: PANTOPRAZOLE 20 MG TABLET PO (05:33)
[2019-12-15] MEDS: LEVOTHYROXINE 75 MCG TABLET PO (05:37)
[2019-12-15 06:17] LABS: Hematocrit 37.6 % (36-46); Hemoglobin 12.7 g/dL (12.0-16.0)
--- NOTE | 2019-12-15 06:30 | PM.DS.1 ---
History of Present Illness History of Present Illness Date Patient Seen: 12/15/19 Time Patient Seen: 06:31 Chief complaint: [id number] Narrative: The history and physical are contained in the chart previously completed note. Please refer to that note for this information. Discharge Providers Provider Date of admission: 12/14/19 08:03 Discharge Date: 12/15/19 Primary care physician: Claribel Brandt Consults: 12/14/19 13:29 Consult to Discharge Planning Routine Comment: Consult to Physical Therapy Evaluate & Treat Comment: Physician Instructions: postop TKA protocol Discharge provider: Luigi Shah MD Summary Hospital Course Discharge Diagnosis: 1. Left knee osteoarthritis Hospital Course: The patient was admitted to the hospital and taken directly to the operating room on December 14, 2019. She underwent a left total knee replacement without complications. On postoperative day 1 she was quite comfortable and ready for discharge home. Status at Discharge Cognitive/behavioral status at discharge: oriented Functional status at discharge: uses cane/walker Overall status at discharge: patient is progressing back to baseline Time Spent with Patient Time spent: Less than 30 minutes Exam Vital Signs (past 8 hours): - 12/15/19 00:39 12/15/19 03:53 Temperature 98.4 F 97.2 F L Pulse Rate 64 69 Respiratory Rate 16 16 Blood Pressure 129/63 144/71 H Pulse Oximetry 93 95 Oxygen Delivery Method Room Air Oxygen Flow Rate 0 Narrative Exam Narrative: Left knee wound is dressed with no drainage on the bandage. Calf is soft. Light touch and motion are intact in the left lower extremity. Objective Labs Result Diagrams: 12/15/19 06:00 Labs: Laboratory Results - last 24 hr 12/15/19 06:00 Hgb 12.7 Hct 37.6 Discharge Plan Discharge Plan Patient Disposition: Home Discharge orders & Medications Prescriptions: New aspirin 81 mg Tablet,Delayed Release (Dr/Ec) 81 mg PO BID 42 Days Qty: 84 RF: 0 hydroxyzine pamoate 25 mg Capsule 25 mg PO Q6HR PRN (Reason: Nausea) Qty: 40 RF: 0 oxycodone 5 mg Tablet 5 mg PO Q4HR PRN (Reason: Pain, Moderate (4-6)) Qty: 40 RF: 0 Continued omeprazole 20 mg Capsule,Delayed Release(Dr/Ec) 20 mg PO DAILY RF: 0 acetaminophen [Acetaminophen Extra Strength] 500 mg Tablet 1,000 mg PO Q6H PRN (Reason: Pain) RF: 0 pravastatin 40 mg Tablet 40 mg PO BEDTIME RF: 0 levothyroxine [Synthroid] 75 mcg Tablet 75 mcg PO DAILY RF: 0 Follow up/Referrals: Luigi Shah MD [Physician] - 2 Weeks Claribel Brandt [Primary Care Provider] - Discharge Health Status Multidrug resistant organism: No MDRO Diet/Activity/Treatments Diet: Diet as Tolerated and Regular Activity: You may bear weight as tolerated on your left leg. Cold/Heat Therapy: Apply ice as needed for 15 minutes every hour as needed for pain control to the left knee. Skin/Wound/Dressing Care Report to your healthcare provider any signs of infection, such as:: chills, fever, night sweats, increased pain, unusual drainage and unusual redness Dressing: You may remove the Milo wrap 3 days after surgery. You may shower with the deeper dressing in place. If the central strip of the deeper dressing becomes saturated with either water or blood, please call the office to have it evaluated. Visit Report/Discharge Packet Instructions: DI for Knee Replacement, DI for Prescription Opioid Use Stand Alone Forms: Surgery Discharge Discharge Data Primary Care Provider: Claribel Brandt
--- NOTE | 2019-12-15 08:03 | PC.NURSE ---
AM NOTE - pt is moving restlessly in bed, can move both her rue and rle, pulling herself upright to l side bed using side rails,weaker than left, can follow a few basic directions, speech is slurred, does answer yes and a few more words, speaking when room no one in room, speech in and meds were crushed and given in applesauce, need to avoid pocketing on right, did cough occassionally after some bites and speech will keep npo except meds until reeval tomorrow am, bruising rue, r foot, can follow directions to hold out arms w/right drift, wiggles toes, incont urine and brief changed, pericare to pink groin and labia, barrier cream applied, Dr. Medina in and medications discussed, given 650mg tylenol for restlessness.
[2019-12-15] MEDS: ACETAMINOPHEN 325 MG TABLET 650 MG PO ×2 (08:50→14:29)
[2019-12-15] MEDS: DOCUSATE 100 MG CAPSULE PO (08:50)
[2019-12-15] MEDS: ASPIRIN EC 81 MG TABLET PO (08:50)
[2019-12-15] MEDS: LACTATED RINGERS 1,000 ML 125 ML IV (09:38)
--- NOTE | 2019-12-15 10:27 | PT.IPTN ---
Current Diagnoses Unilateral primary osteoarthritis, left knee (12/14/19) Surgery Performed Operation Date: 12/14/19 10:15 Actual Procedures p Total Knee Arthroplasty(Left) - Luigi Shah MD Physical Therapy Treatment Note M2 PT-IP Current Condition Start: 12/14/19 16:01 Freq: NEEDED Status: Active Protocol: Document 12/14/19 16:58 AW (Rec: 12/14/19 17:20 AW [email or web address]) Physical Therapy Current Condition Current Condition Evaluation Date 12/14/19 Treatment Diagnosis L TKA, impaired mobility Onset Date 12/14/19 Weight Bearing Status Weight Bearing Status Weight Bear as Tolerated M3 PT-IP Subjective Start: 12/14/19 16:01 Freq: NEEDED Status: Active Protocol: Document 12/15/19 09:25 HH (Rec: 12/15/19 10:27 HH [email or web address]) Subjective Physical Therapy Visit Type Type Treatment Note Visit Start Time 09:25 Visit Stop Time 09:40 Total Visit Minutes 15 Number of ASSOCIATE Visits 0 Physical Therapy Visit Comments Patient Comments Pt is willing to mobilize with PT Patient Goals Pt hopes to be able to take longer walks and correct her gait pattern. Therapy Pain Assessment Pain Present Pain Present Denied Pain M4 PT-IP Mobility and Gait Start: 12/14/19 16:01 Freq: NEEDED Status: Active Protocol: Document 12/15/19 09:25 HH (Rec: 12/15/19 10:27 HH [email or web address]) PT-Bed Mobility Assessment Supine to Sit Supine to Sit Standby Assistance Scooting Scooting to Edge of Bed Standby Assistance PT-Transfer Assessment Comments Mobility Comments Pt was in supine on elevated HOB 30 degrees upon assessment . Denies pain and reports of feeling great. BP from earlier = 120/56. Pt was off from IV early this morning per TARA Fitch. Pt was instructed to complete supine to sit ( flatterned bed) with SBA. Pt did have difficulty pivoting her LLE. Educated pt to use gait belt to assist. Pt then sat at the EOB and performed seated heel slide with towel underneath. However, pt started c/o dizziness, lightheadedness and Black flashes while TARA Fitch was planning to provide pain medication. Pt's BP at 57/30 HR 56. RN and PT decided to place pt back to supine in trendelengberg position for 4mins. Pt's BP returned to 120 /56 and symptoms resolved. TARA Fitch recommended to provide IV fluid again and defer PT session after lunch. Gait Assessment Comments Gait Comments did not assess M5 PT-IP Objective Assessments Start: 12/14/19 16:01 Freq: NEEDED Status: Active Protocol: Document 12/14/19 16:58 AW (Rec: 12/14/19 17:20 AW [email or web address]) Orientation Orientation/Cognition Level of Alertness Alert Orientation Name,Day of Week,Place, Situation Language Function Ability No Deficits Noted Safety Awareness Understands Safety Issues Memory Description No Deficits Noted Gross Range of Motion Upper Extremity ROM Assessment Within Functional Limits Lower Extremity ROM Assessment Left Impaired Strength Upper Extremity Strength Assessment Within Functional Limits Lower Extremity Strength Assessment Bilaterally Impaired Hip 4-/5 Knee R 4+/5 Ankle R 4/5; L 4-/5 Coordination Assessment Gross Coordination Gross Coordination WNL Sensation Assessment Sensation Gross Sensation Right LE Impaired,Left LE Impaired Comments Sensation Comments Pt reports numbness in bilateral buttocks Muscle Tone Muscle Tone WNL Yes M6 PT-IP Treatment Start: 12/14/19 16:01 Freq: NEEDED Status: Active Protocol: Document 12/14/19 16:58 AW (Rec: 12/14/19 17:20 AW [email or web address]) Physical Therapy Treatment Exercises Exercises Ankle Pumps,Quad Sets Education Education Provided Precautions,Weight Bearing Status,Post-Op Packet,Safety Other Treatments Other Treatment Performed Provided education on role of PT, plan of care, weightbearing status, and safe use of FWW. M7 PT-IP Assessment and Plan Start: 12/14/19 16:01 Freq: NEEDED Status: Active Protocol: Document 12/15/19 09:25 HH (Rec: 12/15/19 10:27 HH [email or web address]) PT Summary Assessment and Plan Potential Rehabilitation Potential Excellent Status of Condition at Evaluation Evolving Summary Impairments Pain,ROM,Strength,Balance,Bed Mobility,Transfers,Gait, Activity Tolerance Assessment Summary Pt has an episode of orthostatic hypotension after supine to sit this morning whose BP down to 57/30 and required to be placed in trendenlenberg position for 4mins. BP did return to normal 120/56. TARA Fitch suspects pt suffered from post op fluid change. Recommended to defer PT until PM when pt is medically stable. Goals Bed Mobility Goal Independent Transfer Goal Independent,Front Wheeled Walker Gait Goal Independent,Front Wheel Walker Gait Distance 200 Other Goals - up/down 2 steps with R rail ascending SBA Days to Meet Goals 2 Frequency of Treatment Frequency Of Treatment Twice a Day Treatment Plan Physical Therapy Treatment Plan Bed Mobility Training,Transfer Training,Gait Training, Therapeutic Exercise,Balance Retraining,Post Op Education, Discharge Planning,Hot or Cold Pack,Neuromuscular Re-ed, Coordination Retraining,Manual Therapy Recommendations To Nursing Amount of Assist Needed 1 Person Assist Discharge Recommendations PT Discharge Recommendations Home with Assistance, Outpatient PT Transportation Needs at Discharge Private Vehicle
--- NOTE | 2019-12-15 10:55 | PC.NURSE ---
Addendum entered by Little Stearns R.N. 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 Addendum entered by Little Stearns R.N. 12/15/19 13:53: VITALS/MS - phys therapy in, pt sat dangle position, bp 127/71, reports no lightheadedness or dizziness, stood and bp 125/65, ambul w/fww into hallway and then to stair practice, gait slow, steady, spouse at side. Addendum entered by Little Stearns R.N. 12/15/19 11:54: VITALS/MS/PAIN - pt up to dangle position w/asphalt roller person, bp checked 128/66, hr 60's, denies changed in mentation, speech is clear, no dizziness, using fww, ambul br void, ret to bed, states pain 4 on scale 0/10, eating lunch, states would prefer 10mg oxycodone for afternoon phys therapy and given 10mg now. Addendum entered by Little Stearns R.N. 12/15/19 10:58: PHYS THERAPY/VITALS - observed pt in dangle position with phys therapy, when asked how she felt, pt stated that her ears were ringing and she felt warm and her vision was dim, immediately checked bp at 57/30, pt had no loc change, with phys therapy assistance, placed in supine position and then placed bed in trendelenberg postion, recheck bp and rechecked her bp 120/56, hr 60, restarted the LR at 125ml/hr, discussed pain and pt stated 2 on scale 0/10, advised we will delay admin narcotics while rechecking her bp q 15 minutes, checks indicate bp 110/73, 114/64, hr remained 58-60, no changes in mentation observed, as PA was in surg throughout am, notifed Dr. Shah office and spoke to Mariana regarding the low bp and restart of ivf, no new orders, she will inform office PA and call back for any addl orders. Original Note: AM NOTE - pt is alert, pt easily assisted up to dangle position and x1 person w/fww, ambul to br w/void, some stress incontinence, replaced brief, ret to bed, states her pain 2 on scale 0/10, I'd like to try 2 tabs next time, + cms, aquacell w/irish wrap over cdi, bs clear, denies nausea and byron gen diet breakfast, ra 94%, hr 58, bp 144/75.
--- NOTE | 2019-12-15 14:05 | PT.IPTN ---
Current Diagnoses Unilateral primary osteoarthritis, left knee (12/14/19) Surgery Performed Operation Date: 12/14/19 10:15 Actual Procedures p Total Knee Arthroplasty(Left) - Luigi Shah MD Physical Therapy Treatment Note M2 PT-IP Current Condition Start: 12/14/19 16:01 Freq: NEEDED Status: Active Protocol: Document 12/14/19 16:58 AW (Rec: 12/14/19 17:20 AW [email or web address]) Physical Therapy Current Condition Current Condition Evaluation Date 12/14/19 Treatment Diagnosis L TKA, impaired mobility Onset Date 12/14/19 Weight Bearing Status Weight Bearing Status Weight Bear as Tolerated M3 PT-IP Subjective Start: 12/14/19 16:01 Freq: NEEDED Status: Active Protocol: Document 12/15/19 13:38 SP (Rec: 12/15/19 14:26 SP [id number]) Subjective Physical Therapy Visit Type Type Treatment Note Visit Start Time 13:38 Visit Stop Time 14:05 Total Visit Minutes 27 Number of AQUATICS LIFEGUARD Visits 1 Physical Therapy Visit Comments Patient Comments Pt willing to mobilize withPT. Patient Goals Pt hoping to do stairs with and go home today. Therapy Pain Assessment Pain When Pain Assessed During Mobility Pain Present Pain Present Pain Reported Location left knee Intensity 1 Pain Management Techniques Re-positioning,Timing of Activity with Medications M4 PT-IP Mobility and Gait Start: 12/14/19 16:01 Freq: NEEDED Status: Active Protocol: Document 12/15/19 13:38 SP (Rec: 12/15/19 14:26 SP [id number]) PT-Bed Mobility Assessment Supine to Sit Supine to Sit Standby Assistance Scooting Scooting to Edge of Bed Standby Assistance PT-Transfer Assessment Sit to and From Stand Sit to and from Stand Standby Assistance,Use of Upper Extremities Equipment Transfer Assistive Device Bed Rail,Front Wheeled Walker Orthotic/Prosthetic Devices or Brace: No Transfers Transfer Technique pt ambulated with fWW Comments Mobility Comments Pt was elevated supine when arrived. inroom. Complete supine to sitting SBA with little use of BUE to assist reposition LLE to EOB but stated was shown how to use the gait belt if needed for L LE support. donned gait belt and provided SBA durign sit to stand using BUE proper hand placement and FWW. Took vitals seated BP 127 /71 HR 70bpm, standign after 1 min 125/65 HR 75bpm with no report of dizziness. Pt was able to ambulate R side of bed to stairs to nursing station and back to chair in room approx 100ft usign FWW SBA- CGA provided by vishnu caregiver training. Pt was up in chair when left and in room, call light and all needs in reach when left. Discussed progress with nurse and cleared to go home with to give her assistance when medically stable. Pt reported only 1 /10 L knee pain with mobility. Gait Assessment Gait Gait Assistance Required: Standby Assistance,Contact Guard Assist Distance (Feet) 100 Able to Maintain Weight Bearing Status Yes During Gait Assistive Devices Assistive Device Gait Belt,Front Wheeled Walker Orthotic/Prosthetic Devices or Brace: No Gait Deviations General Gait Pattern Antalgic,Decreased Stride Length,Decreased Feet Clearance,Flexed Trunk,Step-to Gait Factors Limiting Gait Function Factors Limiting Gait Function Decreased Activity Tolerance, Decreased Strength,Limited Range of Motion,Pain Comments Gait Comments Pt ambulated using FWW SBA- CGA provided by , cued for L knee flexion and heel toe gait and encouraged to remind her as well for improving normal gait step over step, improved as distance progressed. Stair Climbing Assessment Evaluation Level of Assist On Stairs Contact Guard Assistance Devices Stair Climbing Assistive Devices Straight Cane,Right Railing Technique/Endurance Stair Climbing Direction Ascend and Descend Stair Climbing Technique Step to Step Number of Steps Climbed 3 Stair Climbing Set # Repetitions (reps) 1 Comments Stair Climbing Comments Pt was ableto complete 3 stair mgt CGA provided by , therapist provided cues to for body postioning and hand placement under gait belt for safety. Pt was ableto step to gait ascend with RLE, descend LLE usign SPC in LUE and RHR ascending CGA, stable. PT-Balance Assessment Sitting Balance and Reactions Static Sitting Balance Ability Good Dynamic Sitting Balance Ability Good Standing Balance and Reactions Static Standing Balance Ability Good Dynamic Standing Balance Ability Good Device Used FWW M5 PT-IP Objective Assessments Start: 12/14/19 16:01 Freq: NEEDED Status: Active Protocol: Document 12/14/19 16:58 AW (Rec: 12/14/19 17:20 AW [email or web address]) Orientation Orientation/Cognition Level of Alertness Alert Orientation Name,Day of Week,Place, Situation Language Function Ability No Deficits Noted Safety Awareness Understands Safety Issues Memory Description No Deficits Noted Gross Range of Motion Upper Extremity ROM Assessment Within Functional Limits Lower Extremity ROM Assessment Left Impaired Strength Upper Extremity Strength Assessment Within Functional Limits Lower Extremity Strength Assessment Bilaterally Impaired Hip 4-/5 Knee R 4+/5 Ankle R 4/5; L 4-/5 Coordination Assessment Gross Coordination Gross Coordination WNL Sensation Assessment Sensation Gross Sensation Right LE Impaired,Left LE Impaired Comments Sensation Comments Pt reports numbness in bilateral buttocks Muscle Tone Muscle Tone WNL Yes M6 PT-IP Treatment Start: 12/14/19 16:01 Freq: NEEDED Status: Active Protocol: Document 12/15/19 13:38 SP (Rec: 12/15/19 14:26 SP [id number]) Physical Therapy Treatment Exercises Exercises Ankle Pumps,Gluteal Sets,Quad Sets,Heel Slides,Seated Knee Flexion/Extension Education Education Provided Precautions,Weight Bearing Status,Post-Op Packet,Safety Other Treatments Other Treatment Performed Educated patient to continue HEP provided by PT pre and post op daily and walking around every hour to progress ROM while waiting for outpatient PT appt, verbal understanding. M7 PT-IP Assessment and Plan Start: 12/14/19 16:01 Freq: NEEDED Status: Active Protocol: Document 12/15/19 13:38 SP (Rec: 12/15/19 14:26 SP [id number]) PT Summary Assessment and Plan Potential Rehabilitation Potential Excellent Status of Condition at Evaluation Stable Summary Impairments Pain,ROM,Strength,Balance,Bed Mobility,Transfers,Gait, Activity Tolerance Assessment Summary Pt's vitals were stable and not symptomatic this afternoon . provided caregiver training including bed mob, tranfers, gait, stair mgt usign gait belt and fWW, SPC and RHR on 3 stairs mgt with SBA- CGA. Pt is able to go home with to assist her when medically stable. PT recommendation outpatient PT. Goals Bed Mobility Goal Independent Transfer Goal Independent,Front Wheeled Walker Gait Goal Independent,Front Wheel Walker Gait Distance 200 Other Goals - up/down 2 steps with R rail ascending SBA Days to Meet Goals 2 Frequency of Treatment Frequency Of Treatment Twice a Day Treatment Plan Physical Therapy Treatment Plan Bed Mobility Training,Transfer Training,Gait Training, Therapeutic Exercise,Balance Retraining,Post Op Education, Discharge Planning,Hot or Cold Pack,Neuromuscular Re-ed, Coordination Retraining,Manual Therapy Recommendations To Nursing Amount of Assist Needed 1 Person Assist Discharge Recommendations PT Discharge Recommendations Home with Assistance, Outpatient PT Transportation Needs at Discharge Private Vehicle
--- NOTE | 2019-12-15 15:53 | CM.DANOTE ---
DCP/Assessment: Reviewed chart. Patient is 64yr old female admitted to [facility] with left TKA performed on 12-14-[address] Shah. Primary payor is 1)Medicare 2)[employer]. Met with patient this AM explained CM/SW role. Patient reports that he plans to d/c home today. Patient has all needed DME in the home and [facility] P: Home today. No identified d/c planning needs. KING Miller Discharge Planning/Care Management Advanced directive, confirm from FAMILY Start: 12/14/19 14:29 Freq: Q24H Status: Discharge Protocol: Document 12/14/19 14:31 YAD (Rec: 12/14/19 14:31 YAD [id number]) Advance Directive, confirm on record Time 14:31 Person contacted patient Copy received No CM Discharge Assessment Start: 12/15/19 15:51 Freq: Status: Active Protocol: Document 12/15/19 15:51 KJS (Rec: 12/15/19 15:53 KJS [id number]) Discharge Planning Assessment Assigned Locate Technician KING Miller Advance Directives? Yes Advance Directives on File No History Provided By Patient,Medical Record Prior Living Arrangements House Household Members spouse,children Type of transporation used prior to Drives own vehicle admit Independent with ADL's Yes Is patient alert and oriented? Yes DME Already Rented / Owned FWW / Walker,Crutches Patient/Family Preference OP PT Therapy Barriers to Discharge No Discharge Plan Home Transportation Arrangement Family to provide transport. Referrals Initiated None needed Whiteboard Updated in Patient Room with Yes name and ext. # of Locate Technician Review Status In Process Next Review Type Continued Stay Review Pre-Anesthesia Assessment Start: 12/08/19 13:56 Freq: Status: Discharge Protocol: Document 12/08/19 13:56 CAB (Rec: 12/08/19 14:31 CAB [id number]) Pre-Anesthesia Assessment Patient Information Reviewed Via Phone Assessment Assessment Completed With Patient Diagnostic Results BMP/CMP,CBC,EKG,Urinalysis Comment Outside labs/EKG Primary Care Provider Claribel Brandt Seen Specialist in Last 12 Months Yes Specialist Seen Opthamologist/Water Systems Designer, Orthopedist Primary Language Sudanese Cna Required No Height 160.02 cm Weight 88.451 kg Body Mass Index (BMI) 34.5 Hearing Ability Normal Visual Assist Glasses Dentition Type Teeth, Natural Present Barriers to Learning None Hx Anesthesia Reactions Yes: PONV Hx Family Anesthesia Reaction No Hx Malignant Hyperthermia No Hx Blood Transfusions No Hx Blood Transfusion Reaction No Anesthesia Review Requested No 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 No Does patient have OBANDO/SOB No Hx Sleep Apnea No CPAP/BIPAP use not prescribed Currently Taking a Beta Gabrielle No Can You Climb a Flight of Stairs Without No SOB Hx Chest Pain No Hx SOB No Hx Syncope or Dizziness No Anti-Coagulant Therapy No Has a Work Order Detailer No Cardiac Testing No Hx Pacemaker/ICD No Pacemaker Rep Required? No Cardiac Clearance Received Not Applicable Diet Type At Home Regular dysphagia No Bladder Pattern Incontinent, Stress Urinary Catheter Present No Hx Urinary Self Catheterization No Diabetes No HgbA1C 5.7 Date 10/13/19 Patient No Lactating No Hx Drug Resistant Organism No Presence of External or Internal Medical Yes: Bilat eye lens Devices Have you traveled outside the [facility] States in the last 30 days? Marital Status Lives With spouse,children Prior Living Arrangements House Number of Floors (Floors) One Floor Support System Child/Children,Spouse Does the Patient Have Assistance After Yes Surgery Patient Discharge Plan Description Return Home Comment Pt advised 1-2 day length of stay per surgeon Feels Safe in Current Environment Yes Been Physically Hurt or Threatened By a No Person in Current Environment Do you have thoughts of harming yourself None or others? Are you currently considering suicide? No Do you have a plan to hurt yourself or No Plan others? Do You Have Any Spiritual Beliefs That No May Affect Your HC Choices? Do You Have Any Cultural Practices That No May Affect Your HC Choices? Who Can We Speak to About Patient's Care Family, friends Identifying Code for Release of Patient Declines to issue Information Health Care Proxy/Next of Kin Kofi () Health Care Proxy Phone Number Home: Emergency Contact Name Kofi () Emergency Contact Phone Number Home: Advance Directives? Yes Advance Directives on File No Requested Patient Bring Advanced Yes Directives DOS Power of Marketing Database Analyst Yes Power of Marketing Database Analyst Name Kofi () Power of Marketing Database Analyst Phone Number Home: PAC Instructions Do not shave/clip surgical site,Durable medical equipment ,Medications to take/avoid, Nasal antibiotic,No ETOH/ petroleum product on skin DOS, NPO,Post-op transportation,Pre -surgical wash,Sturdy shoes/ comfortable clothes,Do not bring valuables and remove jewelry
== END 2019-12-15 14:40 | disposition home or self-care (01) ==
LOC: AC 14:15 → OR 14:47 → AC 14:49 → OR 14:51
PROVIDERS: Admitting Provider Orthopaedic Surgery; PCP Family Medicine; Referring Provider Orthopaedic Surgery; Visit Provider Orthopaedic Surgery
PROC: 0SRD0JZ Replacement of Left Knee Joint with Synthetic Substitute, Open Approach (ICD-10-PCS; CPT 27447; principal; 2019-12-14 10:15)
DX: M17.12 Unilateral primary osteoarthritis, left knee (principal); E03.9 Hypothyroidism, unspecified; E78.5 Hyperlipidemia, unspecified; K21.9 Gastro-esophageal reflux disease without esophagitis
CPT/HCPCS: 27447; 36415; 73560; 85014; 85018; 97116; 97161; 97530; C1776; G0378; C9290; J0690; J1100; J2250; J2270; J2274; J2405; J2704; J3010

== ENCOUNTER → 2021-03-07 13:28 | Outpatient (CLI) | payer MEDICARE, OTHER, SELFPAY ==
[2019-12-14 14:24] VITALS: BMI 33.4
--- NOTE | 2021-03-07 | DI.MRI.S_ITS ---
PROCEDURE: MR SHOULDER LT WO CON INDICATIONS: Unspecified rotator cuff tear or rupture of left shoulder, n TECHNIQUE: Noncontrast oblique coronal T2 fast spin echo with fat saturation, oblique sagittal T1 spin echo and T2 fast spin echo with fat saturation, axial T1 spin echo and T2 fast spin echo with fat saturation through the shoulder. COMPARISON: [facility] [place], CR, XR SHOULDER 2+ VIEWS LEFT, 12/28/2020, 13:18. FINDINGS: Image quality: Excellent. Rotator cuff: Mild T2 signal elevation throughout the supraspinatus tendon at the humeral insertion site, indicating tendinopathy. Superimposed low-grade partial-thickness intrasubstance tears of the mid/anterior supraspinatus tendon at the humeral insertion site. Subscapularis, infraspinatus, and teres minor tendons are intact. No rotator cuff atrophy. Bones and bursae: No bone marrow contusions or fractures. Subchondral cysts within the anteroinferior glenoid. Moderate acromioclavicular joint degeneration. The acromion demonstrates conventional anatomy, without an os acromiale. A small amount of subacromial-subdeltoid or subcoracoid bursal fluid is present. Capsule and soft tissues: Diffuse degenerative glenoid labral fraying is present. The long head of the biceps tendon demonstrates normal location and morphology. The rotator interval appears normal, without fibrosis. The coracohumeral ligament is normal in thickness. IMPRESSION: 1. Supraspinatus tendinopathy with superimposed low-grade partial-thickness tearing. No full-thickness rotator cuff tear. 2. Acromioclavicular joint osteoarthritis. 3. Mild subacromial bursitis. 4. Degenerative glenoid labral fraying. Dictated by: Oscar Calix M.D. on 03/07/2021 at 15:11 Approved by: Oscar Calix M.D. on 03/07/2021 at 15:12
== END ==
PROVIDERS: PCP Family Medicine; Referring Provider Orthopaedic Surgery; Visit Provider Orthopaedic Surgery
DX: M75.102 Unspecified rotator cuff tear or rupture of left shoulder, not specified as traumatic (principal); M19.112 Post-traumatic osteoarthritis, left shoulder; M19.012 Primary osteoarthritis, left shoulder; M75.52 Bursitis of left shoulder
CPT/HCPCS: 73221

== ENCOUNTER 2023-02-14 11:25 | Emergency (ER) | payer MEDICARE, OTHER, SELFPAY ==
[2019-12-14 14:24] VITALS: BMI 33.4
[2023-02-14 11:30] VITALS: BP 185/84; PULSE 69; RESP 18; TEMP 36.5; O2SAT 97; BMI 29.9
--- NOTE | 2023-02-14 11:46 | PC.NURSE ---
CARTRIDGE GAUGER intact distally. No episodes of incontinence
--- NOTE | 2023-02-14 12:17 | ED_ITS ---
HPI - Back Pain/Injury <Marcie Mena, [facility] - Last Filed: 02/14/23 12:44> General Chief Complaint: Back Pain/Injury Stated Complaint: hurt back T-1 Time Seen by Provider: 02/14/23 12:09 Source: patient History of Present Illness HPI Narrative: This is a 67-year-old female presents emergency department complaining of bilateral low back pain since yesterday when she was bending over making the bed and experienced bilateral muscular spasm and pain similar to a previous episode. She states that she has history of sciatica and does not currently have radiculopathy symptoms however she has bilateral low back pain above her hips and it does not radiate further. She denies any groin paresthesia, weakness, numbness or tingling, incontinence or urinary retention. She states that she normally takes Tylenol for this and it is been helpful however this time her pain is stronger and the Tylenol has not covered it. Last dose was at 05:30 this morning. She denies any recent trauma. Related Data Home Medications Medication Instructions Recorded Confirmed levothyroxine 75 mcg tablet 75 mcg PO DAILY 04/14/18 12/14/19 (Synthroid) pravastatin 40 mg tablet 40 mg PO BEDTIME 04/14/18 12/14/19 acetaminophen 500 mg tablet 1,000 mg PO Q6H PRN Pain 12/08/19 12/08/19 (Acetaminophen Extra Strength) omeprazole 20 mg capsule,delayed 20 mg PO DAILY 12/08/19 12/14/19 release Previous Rx's Medication Instructions Recorded hydroxyzine pamoate 25 mg capsule 25 mg PO Q6HR PRN Nausea #40 caps 12/15/19 oxycodone 5 mg tablet 5 mg PO Q4HR PRN Pain, Moderate 12/15/19 (4-6) #40 tabs hydrocodone 5 mg-acetaminophen 325 1 tab PO BID PRN pain #10 tabs 02/14/23 mg tablet lidocaine 5 % topical patch 2 patch topical DAILY PRN back 02/14/23 (Lidoderm) pain #30 ea methocarbamol 500 mg tablet 500 mg PO TID PRN muscle spasm #20 02/14/23 tabs naproxen 375 mg tablet 375 mg PO BID PRN pain #20 tabs 02/14/23 Allergies Allergy/AdvReac Type Severity Reaction Status Date / Time No Known Drug Allergies Allergy Verified 02/14/23 11:33 Review of Systems <LEXI Stark - Last Filed: 02/14/23 12:44> Review of Systems ROS Unobtainable: All systems reviewed & are unremarkable except as noted in HPI and below Patient History <LEXI Stark - Last Filed: 02/14/23 12:44> Medical History GERD (gastroesophageal reflux disease) Hyperlipidemia Hypothyroidism Osteoarthritis Right knee pain Surgical History Hx of arthroscopy of right knee (04/17/18) Hx of bilateral cataract extraction (~2015) Hx of dilation and curettage S/P debridement Social History household members: spouse and children Smoking Status: Never smoker alcohol intake: current Smoking Status: Never smoker alcohol intake frequency: holidays/special occasions only Substance Use Type: does not use Exam <LEXI Stark - Last Filed: 02/14/23 12:44> Narrative Exam Narrative: Reviewed vitals signs and nursing notes. General: Pleasant, sitting upright, in no acute distress, well groomed, afebrile HEENT: symmetrical facial expressions, moist mucous membranes, neck is supple CV: regular rate and rhythm, warm extremities Respiratory: normal work of breathing, without tachypnea or hypoxia. GI: abdomen soft, nondistended, without CVA tenderness bilaterally. MSK: moves all extremities, no weakness, normal tone, ambulatory without deficit, patient is without weakness, she has tenderness to the paraspinal lumbar musculature, nontender along lumbar and sacral spine, atraumatic, without rash, erythema, or obvious abnormality. Skin: brisk capillary refill, without rash or wound Neuro: normal speech and cognition, A&O x3 Initial Vital Signs Initial Vital Signs: Vital Signs Temperature 97.7 F 02/14/23 11:30 Pulse Rate 69 02/14/23 11:30 Respiratory Rate 18 02/14/23 11:30 Blood Pressure 185/84 H 02/14/23 11:30 Pulse Oximetry 97 02/14/23 11:30 Oxygen Delivery Method Room Air 04/07/23 11:30 <Merry Giordano DO - Last Filed: 02/15/23 08:07> Initial Vital Signs Initial Vital Signs: Vital Signs Temperature 97.7 F 02/14/23 11:30 Pulse Rate 69 02/14/23 11:30 Respiratory Rate 18 02/14/23 11:30 Blood Pressure 185/84 H 02/14/23 11:30 Pulse Oximetry 97 02/14/23 11:30 Oxygen Delivery Method Room Air 02/14/23 11:30 Course <LEXI Stark - Last Filed: 02/14/23 12:44> Orders Ordered: Discontinued Medications Acetaminophen (Acetaminophen 325 Mg Tablet) 650 mg PO NOW ONE Stop: 02/14/23 12:17 Last Admin: 02/14/23 12:35 Dose: 650 mg Documented By: ROBINSON Ketorolac Tromethamine (Ketorolac 30 Mg/Ml Vial) 15 mg IM NOW ONE Stop: 02/14/23 12:17 Last Admin: 02/14/23 12:36 Dose: 15 mg Documented By: ROBINSON Lidocaine (Lidocaine Patch 1 Each Adh..Patch) 2 each TOP NOW ONE Stop: 02/14/23 12:17 Last Admin: 02/14/23 12:37 Dose: 1 each Documented By: ROBINSON Vital Signs Vital signs: Vital Signs - 8 hr 02/14/23 11:30 Temperature 97.7 F Pulse Rate 69 Respiratory Rate 18 Blood Pressure 185/84 H Pulse Oximetry 97 Oxygen Delivery Method Room Air <Merry Giordano DO - Last Filed: 02/15/23 08:07> Orders Ordered: Discontinued Medications Acetaminophen (Acetaminophen 325 Mg Tablet) 650 mg PO NOW ONE Stop: 02/14/23 12:17 Last Admin: 02/14/23 12:35 Dose: 650 mg Documented By: ROBINSON Ketorolac Tromethamine (Ketorolac 30 Mg/Ml Vial) 15 mg IM NOW ONE Stop: 02/14/23 12:17 Last Admin: 02/14/23 12:36 Dose: 15 mg Documented By: ROBINSON Lidocaine (Lidocaine Patch 1 Each Adh..Patch) 2 each TOP NOW ONE Stop: 02/14/23 12:17 Last Admin: 02/14/23 12:37 Dose: 1 each Documented By: KLS Vital Signs Vital signs: Vital Signs - 8 hr 02/14/23 11:30 Temperature 97.7 F Pulse Rate 69 Respiratory Rate 18 Blood Pressure 185/84 H Pulse Oximetry 97 Oxygen Delivery Method Room Air [facility] - Back Pain/Injury <Marcie LEXI Anderson - Last Filed: 02/14/23 12:44> [facility] Narrative Medical decision making narrative: Chief Complaint: low back pain Differential diagnosis considered include: disc injury/herniation, radiculopathy, paraspinal or other muscular strain, chronic pain, acute fracture, urinary tract infection, osteoarthritis, degenerative disc disease, cauda equina, osteomyelitis, epidural abscess, spinal stenosis, ligamental injury. I have reviewed the patient's vital signs and nursing notes as well as prior records if available. Prior Charts reviewed: Previous ED visits for urinary tract symptoms Imaging reviewed: No imaging indicated as is patient is atraumatic, without red flag symptoms of low back pain Course of care: Suspect likely musculoskeletal etiology strain/sprain,/acute exacerbation of chronic low back pain. Patient's straight leg raise test was positive. No back pain red flags on history or physical. No history of IV substance use, or bony tenderness to palpation, no trauma, no bony tenderness to palpation , afebrile, no CVAT, no urinary symptoms. No bowel or urinary incontinence or retention, no saddle anesthesia, no new/worsening distal weakness, decreased reflexes or foot drop. Pt is nontoxic appearing. Patient has soft tissue tenderness to palpation. Pt is neurovascularly intact distally, afebrile, without immunosuppression or evidence of infection, peritoneal signs, hypertensive crisis, incontinence, or meningeal signs. Patient's symptoms improved over duration of stay with above-stated therapies. Discharge diagnosis, return precautions and plan discussed with patient followed by verbalization of understanding. Social considerations that may affect disposition: none Questions are addressed and there is agreement with the plan and for follow-up. Patient is appropriate for outpatient management. MIPS: This encounter doesn't have any diagnosis' associated with MIPS criteria. Discharge Plan Departure Patient Disposition: Home Clinical Impression: Strain of lumbar region Qualifiers: Encounter type: initial encounter Qualified Code(s): S39.012A - Strain of muscle, fascia and tendon of lower back, initial encounter Acute low back pain Qualifiers: Back pain laterality: bilateral Sciatica presence: without sciatica Qualified Code(s): M54.50 - Low back pain, unspecified Instructions: DI for Muscle Strain, DI for Back Pain With Sciatica Activity Restrictions/Additional Instructions: *You have been diagnosed with back strain/sprain with muscle spasm. This is likely related to your previous low back pain and is exacerbated. Please try using the lidocaine patches in conjunction with Tylenol and naproxen as needed, for breakthrough pain or severe spasm, take a muscle relaxer or a hydrocodone. Please avoid taking them together at the same time. Okay to overlap a few hours as needed. Take all medicines with food and water. Please avoid constipation as this may make your back pain worse. I hope you start feeling better soon, follow-up for a referral to physical therapy as it may be helpful to identify the root cause of this pain better, as well as help prevent in the future. *What to do: *Please continue to take your regular medications as directed. [x ] New medication prescriptions sent to your pharmacy: [DOD ] [ ] New medication written as a paper prescription [ ] No new medications given *Please follow up with your primary care provider in 2-3 days, call for an appointment. Let them know you were seen in the Emergency Department and that we asked that you be seen for follow-up. We will electronically transmit a record of today's note if your PCP is in our system *If you do not have a primary care provider please contact [phone] to establish care with one of the [facility] primary care providers. *Return to Emergency Department if you should have any new, worsening, or concerning symptoms, such as [fever greater than 101F, chills, worsening pain, persistent vomiting or other bothersome symptoms]. Prescriptions: New methocarbamol 500 mg tablet 500 mg PO TID PRN (Reason: muscle spasm) Qty: 20 0RF lidocaine [Lidoderm] 5 % adhesive patch,medicated 2 patch topical DAILY PRN (Reason: back pain) Qty: 30 0RF Rx Instructions: leave on most painful area for up to 12 hrs hydrocodone-acetaminophen 5-325 mg tablet 1 tab PO BID PRN (Reason: pain) Qty: 10 0RF naproxen 375 mg tablet 375 mg PO BID PRN (Reason: pain) Qty: 20 0RF No Action omeprazole 20 mg Capsule,Delayed Release(Dr/Ec) 20 mg PO DAILY acetaminophen [Acetaminophen Extra Strength] 500 mg Tablet 1,000 mg PO Q6H PRN (Reason: Pain) hydroxyzine pamoate 25 mg Capsule 25 mg PO Q6HR PRN (Reason: Nausea) Qty: 40 0RF oxycodone 5 mg Tablet 5 mg PO Q4HR PRN (Reason: Pain, Moderate (4-6)) Qty: 40 0RF pravastatin 40 mg Tablet 40 mg PO BEDTIME levothyroxine [Synthroid] 75 mcg Tablet 75 mcg PO DAILY Referrals: [facility] [Provider Group] [facility] [Provider Group] Gianluca Linda PA-C [Primary Care Provider] - Stand Alone Forms: Patient Portal/API <Merry Giordano DO - Last Filed: 02/15/23 08:07> Cosign ED Attending Jules Attestation: I was immediately available in the department for consultation.
[2023-02-14] MEDS: ACETAMINOPHEN 325 MG TABLET 650 MG PO (12:35)
[2023-02-14] MEDS: KETOROLAC 30 MG/ML VIAL 15 MG IM (12:36)
[2023-02-14] MEDS: LIDOCAINE PATCH 1 EACH ADH..PATCH 2 EACH TOP (12:37)
== END 2023-02-14 12:45 | disposition home or self-care (01) ==
PROVIDERS: Emergency Provider Nurse Practitioner Critical Care Medicine; PCP Physician Assistant
DX: S39.012A Strain of muscle, fascia and tendon of lower back, initial encounter (principal)
CPT/HCPCS: 96372; 99283; J1885

== ENCOUNTER → 2023-06-12 10:37 | Outpatient (CLI) | payer MEDICARE, OTHER, SELFPAY ==
[2019-12-14 14:24] VITALS: BMI 33.4
--- NOTE | 2023-06-12 | DI.NM.S_ITS ---
PROCEDURE: NM BONE SCAN WHOLE BODY RADIOPHARMACEUTICAL: 21.2 mCi Tc-99m MDP IV. INDICATIONS: EVALUATE LOOSENING PROSTHETIC TECHNIQUE: Delayed whole-body scintigrams were obtained approximately 3-4 hours after intravenous injection of radiotracer. Anterior and posterior views were acquired from vertex to feet. Additional left and right oblique views of knees were obtained. COMPARISON: [facility] [place], CR, XR KNEE 4+ VIEWS LEFT, 12/14/2020, 13:33. [facility], CR, XR KNEE 4+ VIEWS LEFT, 05/19/2023, 17:33. FINDINGS: There is left knee arthroplasty. There is increased activity in the knee, along the tibial component at bone-prosthesis interface, suspicious for prosthesis loosening. No lesions are identified in skull, sternum, clavicles, scapulae, ribs, bony pelvis, and visualized shafts of the long bones. There are foci of increased uptake in thoracic and lumbar spine most likely secondary to degenerative disc and facet disease;. There are foci of increased periarticular activity involving shoulders, sternoclavicular joints, wrists, hands, hips, SI joints, right knee, ankles and feet, compatible with degenerative/arthritic changes. IMPRESSION: 1. Left knee arthroplasty. There is increased activity in the knee, along the tibial component at bone-prosthesis interface, suspicious prosthesis loosening. Dictated by: Nori Vang M.D. on 06/12/2023 at 17:06 Approved by: Nori Vang M.D. on 06/12/2023 at 18:24
== END ==
PROVIDERS: PCP Physician Assistant; Referring Provider Physician Assistant Medical; Visit Provider Physician Assistant Medical
DX: Z09 Encounter for follow-up examination after completed treatment for conditions other than malignant neoplasm (principal); Z96.652 Presence of left artificial knee joint
CPT/HCPCS: 78306; A9503

== ENCOUNTER → 2024-06-23 07:14 | Outpatient (CLI) | payer MEDICARE, OTHER, SELFPAY ==
[2019-12-14 14:24] VITALS: BMI 33.4
--- NOTE | 2024-06-23 07:17 | DI.US.S_ITS ---
PROCEDURE: US ABDOMEN LIMITED INDICATIONS: RUQ PAIN TECHNIQUE: Real-time scanning was performed of the right upper quadrant with image documentation. COMPARISON: None. FINDINGS: Liver: The liver measures up to 17 centimeters and demonstrates increased echogenicity. Gallbladder: Stones and sludge are visualized within the gallbladder. No pericholecystic fluid or gallbladder wall thickening. No reported Cheng sign. Biliary ducts: Intrahepatic bile ducts are non-dilated. Extrahepatic bile duct caliber measures < 8 mm. Normal is 6-7 mm or less in diameter, or 10 mm or less post-cholecystectomy. Pancreas: Visualized portions of the pancreas are sonographically normal. Miscellaneous: No free abdominal fluid. IMPRESSION: 1. There is cholelithiasis without evidence for acute cholecystitis. 2. Hepatic steatosis. 3. There is mild dilation of the common bile duct measuring up to 8 millimeters. This finding is of uncertain etiology. Dictated by: Endy Nuno M.D. on 06/23/2024 at 11:07 Approved by: Endy Nuno M.D. on 06/23/2024 at 11:14
== END ==
LOC: US 07:15
PROVIDERS: PCP Nurse Practitioner Family; Referring Provider Nurse Practitioner Family; Visit Provider Nurse Practitioner Family
DX: K80.20 Calculus of gallbladder without cholecystitis without obstruction (principal); K76.0 Fatty (change of) liver, not elsewhere classified; R10.11 Right upper quadrant pain
CPT/HCPCS: 76705

== ENCOUNTER 2024-09-01 10:47 | Day surgery (SDC) | payer MEDICARE, OTHER, SELFPAY ==
[2019-12-14 14:24] VITALS: BMI 33.4
[2024-08-30 14:45] VITALS: BMI 35.4
--- NOTE | 2024-08-31 17:20 | PM.HP.1 ---
History of Present Illness History of Present Illness Date Patient Seen: 09/01/24 Time Patient Seen: 11:42 Chief complaint: SDC Narrative: 68F with symptomatic cholelithiasis here for elective laparoscopic cholecystectomy. No interval change in health. [facility]LY [facility] Medical History Osteoarthritis Right knee pain Hypothyroidism Hyperlipidemia GERD (gastroesophageal reflux disease) Surgical History (Updated 09/01/24 @ 11:12 by Chiquis Gay RN) Hx of total knee arthroplasty (~12/2019) Hx of arthroscopy of right knee (04/17/18) Hx of dilation and curettage Hx of bilateral cataract extraction (~2015) S/P debridement Social History marital status: household members: spouse lives independently: Yes occupational status: previously employed Smoking Status: Never smoker alcohol intake: current substance use type: does not use Meds Home Medications and Allergies Home Medications Medication Instructions Recorded Confirmed Type levothyroxine 75 mcg tablet 75 mcg PO DAILY 04/14/18 09/01/24 History (Synthroid) pravastatin 40 mg tablet 40 mg PO BEDTIME 04/14/18 09/01/24 History omeprazole 20 mg capsule,delayed 20 mg PO DAILY 12/08/19 09/01/24 History release sodium,potassium,mag sulfates 17.5 See Rx Instructions PO .COMPLEX 08/09/24 Rx gram-3.13 gram-1.6 gram oral soln #354 mL (Suprep Bowel Prep Kit) Allergies Allergy/AdvReac Type Severity Reaction Status Date / Time No Known Drug Allergies Allergy Verified 09/01/24 11:03 Exam Narrative Exam Narrative: Gen-Adult woman alert and oriented no distress Assessment & Plan Assessment and plan (1) Biliary colic: Status: Acute Assessment & Plan narrative: 68F with symptomatic biliary colic here for elective laparoscopic cholecystectomy. Questions answered. Operative risks once again reviewed including hemorrhage, infection, damage to surrounding structures. She provides her consent to proceed. Time-Based Coding :: [TOTAL MINUTES] spent with patient and on the chart (including review of chart, obtaining history, exam, reviewing outside data, placing orders, documenting exam and treatment plan, and counseling patient) on [DATE].
[2024-09-01] VITALS (7 sets, daily range): BP systolic 144–175; BP diastolic 71–86; PULSE 57–66; RESP 11–19; TEMP 36.2–36.5; O2SAT 96–99; BMI 35.4
--- NOTE | 2024-09-01 | PATH_ITS ---
[facility] Accession Number: [id number] No. of containers..01 Tissue . 01 Material submitted: . gallbladder - GALLBLADDER AND CONTENTS . 01 Diagnosis: GALLBLADDER AND CONTENTS, CHOLECYSTECTOMY: Chronic cholecystitis with cholelithiasis. Negative for dysplasia and malignancy. [facility] 09/06/2024 1046 Local . 01 Electronically signed: . Marcie Noble MD, Pathologist NPI- [id number] . 01 Gross description: . Received in formalin with two patient identifiers and gallbladder, is an intact gallbladder, 6.1 x 2.9 x 2.7 cm, with an unremarkable external surface. The cystic duct margin is inked blue and no pericystic lymph node is identified. The lumen contains multiple black faceted calculi, up to 1.4 cm in greatest dimension, admixed with green-brown, thickened bile. The mucosa is green and velvety with no yellow areas of discoloration, polyps, or lesions identified. The quesada average 0.2 cm thick. [facility] sections to include the cystic duct margin and full thickness sections are submitted in A1. ([id number]) /MRV 09/03/2024 1604 Local . 01 Pathologist provided ICD-10: K80.60 . 01 CPT . 817193 Specimen Comment: A courtesy copy of this report has been sent to [phone] Performed at: [address] [address], [place], [place] [id number] MD Joseph Danielle MD Phone: [phone]
[2024-09-01] MEDS: ACETAMINOPHEN 325 MG TABLET 975 MG PO (11:26)
[2024-09-01] MEDS: LACTATED RINGERS 1,000 ML 42 ML IV (11:27)
--- NOTE | 2024-09-01 11:44 | SUR.OPER ---
Supine on padded OR bed, head on pillow, safety belt at thigh, left arm padded and tucked at side. Right arm secured on padded arm board <90 degrees abduction. Legs uncrossed. Padded footboard in place. Tape over blanket to secure lower legs.
[2024-09-01] MEDS: CEFAZOLIN 2 GM/100 ML PREMIX 100 ML IV (12:08)
[2024-09-01] MEDS: BUPIVACAINE 0.25% (PF) VIAL 30 ML INJ (12:17)
[2024-09-01] MEDS: HYDROMORPHONE 1 MG INJ IV (13:16)
[2024-09-01] MEDS: OXYCODONE IR 5 MG TABLET PO ×2 (13:26→13:51)
--- NOTE | 2024-09-02 09:04 | PM.OP.1 ---
Operative Date/Time/Diagnoses Date of procedure: 09/01/24 Time of procedure: 09:04 Pre-op diagnosis: Biliary colic Post-op diagnosis: same Procedure & Clinicians Procedure: Laparoscopic cholecystectomy Same procedure as scheduled: Yes Indications: Symptoms and radiographic findings consistent with biliary colic Surgeon: Azam Lloyd Click Yes if Unassisted: Yes Anesthesia Type: General Operative Notes Findings: Intrahepatic contracted gallbladder Critical view of safety established Specimen(s): other (Gallbladder) Estimated Blood Loss (mL): 20 Procedure in detail: The patient was placed supine on the table and bilateral lower extremity compression devices were applied. Anesthesia was induced they were intubated with an endotracheal tube and received 2g of Ancef. A time-out was performed. They were prepped and draped in sterile fashion. An infraumbilical incision was made. The fascia was elevated incised and the abdomen was entered atraumatically. A blunt tip 12mm balloon trocar was then inserted, pneumoperitoneum was established and inspection of the abdomen demonstrated no evidence of injury. They were placed head up and right side up and then a 11 mm port was placed high in the epigastrium and two 5mm in the right upper quadrant. The gallbladder which was intrahepatic and chronically inflamed was grasped by the fundus and retracted over the liver and retracted laterally by the infundibulum. Using electrocautery the lateral plane between the gallbladder and the liver was opened towards the fundus. The gallbladder was then retracted laterally and the medial plane was developed in the same manner. With the gallbladder mobilized the bottom of the cystic plate was visualized. The hepatocystic triangle was meticulosly skeletonized with blunt dissection of fat and fibrous tissue from both the front and the back. Only two structures were then clearly seen entering the gallbladder the cystic duct and the cystic artery. With the critical view of safety fully established the cystic duct was clipped twice proximally and once distally using the 10 mm Weck hemoclip applied under direct visualization and then sharply divided. The cystic artery was divided in the same fashion. The gallbladder was removed from the liver bed using electro cautery. The liver bed was then inspected for hemostasis and this was achieved. The abdomen was irrigated with sterile saline and inspection was made that showed the clips in good position. The specimen was removed using Endo-Catch. The abdomen was desufflated. The umbilical fascia was closed with 0 Vicryl in a [id number] fashion under direct visualization. Skin incisions were irrigated and closed with 4-0 Monocryl. 30 ml of 0.25% bupivacaine was infiltrated into the subcutaneous tissue of the incisions. The wounds were sealed with Dermabond. Patient emerged from anesthesia was extubated and transferred to recovery in stable condition. The sponge and instrument count at the end of the operation was correct. Complications: none Post-operative Condition: stable Disposition: same day surgery
== END 2024-09-01 14:12 | disposition home or self-care (01) ==
PROVIDERS: Referring Provider Surgery; Visit Provider Surgery
PROC: 0FT44ZZ Resection of Gallbladder, Percutaneous Endoscopic Approach (ICD-10-PCS; CPT 47562; principal; 2024-09-01 12:15)
DX: K80.10 Calculus of gallbladder with chronic cholecystitis without obstruction (principal)
CPT/HCPCS: 47562; 82962; J0690; J1100; J1171; J2405; J2704; J3010; J3490

== ENCOUNTER 2024-09-14 11:28 | Day surgery (SDC) | payer MEDICARE, OTHER, SELFPAY ==
[2019-12-14 14:24] VITALS: BMI 33.4
--- NOTE | 2024-09-14 | PATH_ITS ---
[facility] Accession Number: [id number] No. of containers..01 Tissue . 01 Material submitted: . colon - ASCENDING . 01 Diagnosis: ASCENDING: Hyperplastic polyp. [facility] 09/20/2024 1622 Local . 01 Electronically signed: . Joseph Danielle MD, Pathologist NPI- [id number] . 01 Gross description: . ASCENDING: Received in formalin are 2 fragment(s) of sánchez, soft tissue measuring 0.2 x 0.2 x 0.1 cm to 0.3 x 0.3 x 0.3 cm submitted entirely in 1 cassette(s) /RADHA 09/20/20242 Local . 01 Pathologist provided ICD-10: K62.1 . 01 CPT . 955553 Specimen Comment: A courtesy copy of this report has been sent to [phone] Performed at: [address] [address], [place], [place] [id number] MD Joseph Danielle MD Phone: [phone]
[2024-09-14 12:03] VITALS: BP 158/80; PULSE 70; RESP 18; TEMP 36.8; O2SAT 100
--- NOTE | 2024-09-14 13:08 | P.HP_ITS ---
History of Present Illness History of Present Illness Date Patient Seen: 09/14/24 Time Patient Seen: 13:09 Chief complaint: [facility] [place]: 69-year-old woman here for screening colonoscopy. Last colonoscopy over 10 years ago normal. No family history of colon cancer. No abdominal concerns today. [facility] Medical History Osteoarthritis Right knee pain Hypothyroidism Hyperlipidemia GERD (gastroesophageal reflux disease) Surgical History (Updated 09/01/24 @ 11:12 by Chiquis Gay RN) Hx of total knee arthroplasty (~12/2019) Hx of arthroscopy of right knee (04/17/18) Hx of dilation and curettage Hx of bilateral cataract extraction (~2015) S/P debridement Social History marital status: household members: spouse lives independently: Yes occupational status: previously employed Smoking Status: Never smoker alcohol intake: current substance use type: does not use Meds Home Medications and Allergies Home Medications Medication Instructions Recorded Confirmed Type levothyroxine 75 mcg tablet 75 mcg PO DAILY 04/14/18 09/14/24 History (Synthroid) pravastatin 40 mg tablet 40 mg PO BEDTIME 04/14/18 09/14/24 History omeprazole 20 mg capsule,delayed 20 mg PO DAILY 12/08/19 09/14/24 History release acetaminophen 325 mg capsule 650 mg (2 x 325 mg) PO QID PRN 09/01/24 09/14/24 Rx (Tylenol) pain #60 caps Allergies Allergy/AdvReac Type Severity Reaction Status Date / Time No Known Drug Allergies Allergy Verified 09/01/24 11:03 Exam Vital Signs (past 8 hours): - 09/14/24 12:03 Temperature 98.3 F Pulse Rate 70 Respiratory Rate 18 Blood Pressure 158/80 H Pulse Oximetry 100 Oxygen Delivery Method Room Air Oxygen Delivery Method Room Air Narrative Exam Narrative: General adult woman alert oriented no acute distress Chest nonlabored respiration Extremities warm well perfused Assessment & Plan Assessment & Plan narrative: The patient requires colorectal screening and colonoscopy is recommended. Technical details were discussed. Risks, benefits, alternatives explained. Risks including but not limited to myocardial infarction, aspiration, bleeding, pain, missed lesion, incomplete examination, need for further radiographic studies, intestinal injury, and need for major abdominal surgery were discussed. All questions were answered to their satisfaction, and they are in agreement with this plan. Time-Based Coding :: [TOTAL MINUTES] spent with patient and on the chart (including review of chart, obtaining history, exam, reviewing outside data, placing orders, documenting exam and treatment plan, and counseling patient) on [DATE].
--- NOTE | 2024-09-14 13:09 | P.OP.COLON_ITS ---
Operative Date/Time/Diagnoses Date of procedure: 09/14/24 Time of procedure: 13:09 Pre-op diagnosis: Colorectal screening Procedure & Clinicians Study performed: Screening colonoscopy Same procedure as scheduled: Yes Indications: Screening Surgeon: Azam Lloyd Procedure Notes Procedure in detail: The history and physical was performed/updated and the patient is ASA class is 2. The procedure was discussed in detail with the patient. Potential risks complications including infection, bleeding, missed diagnosis, perforation, need for surgery, and were explained. Their questions were answered and informed consent was obtained. Patient was brought to the procedure room and placed standard monitoring equipment. The patient's vital signs were monitored continuously throughout the entire procedure. Prior to starting time-out was performed. The patient was placed in the left lateral recumbent position. Procedural sedation was administered by anesthesia. Examination began with a thorough inspection of the perianal area there was no evidence of fissures, fistulae, external hemorrhoids or cutaneous malignancy. The colonoscopy scope was then placed into the anal canal and was advanced to the cecum, which was identified by the ileocecal valve, the appendiceal orifice and the confluence of the taenia. The scope was then slowly withdrawn examining colon thoroughly in all directions, irrigating it of any residual stool. The scope was retroflexed within the rectum The patient tolerated the procedure well. They will be discharged once criteria are met. The prep was of good/excellent quality. The withdrawl time was 8 minutes. FINDINGS * Ascending colon polyp 3 mm removed with biopsy forceps * Mild diverticulosis of distal colon Findings: divertiulosis Impression: Colonic polyp x1 Post-procedure Recommendations: High fiber diet Plan for aftercare: Follow up dependent on pathology findings Disposition: same day surgery
[2024-09-14 13:32] VITALS: BP 156/74; PULSE 76; RESP 13; TEMP 37.2; O2SAT 99
[2024-09-14 13:37] VITALS: BP 144/79; PULSE 72; RESP 17; TEMP 37.1; O2SAT 100
[2024-09-14 13:45] VITALS: BP 145/85; PULSE 70; RESP 15; O2SAT 98
== END 2024-09-14 14:09 | disposition home or self-care (01) ==
PROVIDERS: Referring Provider Surgery; Visit Provider Surgery
PROC: 0DJD8ZZ Inspection of Lower Intestinal Tract, Via Natural or Artificial Opening Endoscopic (ICD-10-PCS; CPT 45378; principal; 2024-09-14 12:45)
DX: Z12.11 Encounter for screening for malignant neoplasm of colon (principal); K57.30 Diverticulosis of large intestine without perforation or abscess without bleeding; K63.5 Polyp of colon
CPT/HCPCS: 45380; J2704

== ENCOUNTER → 2024-10-04 14:34 | Outpatient (CLI) | payer MEDICARE, OTHER, SELFPAY ==
[2019-12-14 14:24] VITALS: BMI 33.4
--- NOTE | 2024-10-04 14:35 | DI.RAD.S_ITS ---
PROCEDURE: XR DEXA AXIAL SKELETON INDICATIONS: menopausal state COMPARISON: None. FINDINGS: Lumbar Spine: Bone mineral density 0.941 g/cm2, T score -1.0. Left Hip: Bone mineral density 0.729 g/cm2, T score -1.7. Left Femoral Neck: Bone mineral density 0.578 g/cm2, T score -2.4. Right Hip: Bone mineral density 0.734 g/cm2, T score -1.7. Right Femoral Neck: Bone mineral density 0.55 to g/cm2, T score -2.7. Fracture Risk Calculation (when applicable): 10-year fracture risk of a major osteoporotic fracture 14 percent and of a hip fracture 3.4 percent. (T score greater or equal to -1.0 to: NORMAL) (T score from -1.1 to -2.4: OSTEOPENIA) (T score less than or equal to -2.5: OSTEOPOROSIS) IMPRESSION: Osteoporosis. Follow-up guidelines as follows: Osteoporosis: Consider a repeat DEXA and Vertebral Fracture Assessment (VFA) exam in 2 years or sooner if medically necessary, to reassess this patient's status. Osteopenia: Consider a repeat DEXA in 2-3 years to reassess this patient's status, or if there is a new clinical indication. Normal: Consider a repeat DEXA in 5 years or sooner, or if there is a new clinical indication. All treatment decisions require clinical judgment and consideration of individual patient factors, including patient preferences, comorbidities, previous drug use, risk factors not captured in the FRAX model (e.g., frailty, falls, vitamin D deficiency, increased bone turnover, interval significant decline in bone density ) and possible under- or over-estimation of fracture risk by FRAX. In addition, the NOF Guide recommends that FDA-approved medical therapies be considered in postmenopausal women and men age >= 50 years with a: * Hip or vertebral (clinical or morphometric) fracture * T-score of <=-2.5 at the spine or hip * Ten-year fracture probability by FRAX of >= 3% for hip fracture or >=20% for major osteoporotic fracture. People with diagnosed cases of osteoporosis or at high risk for fracture should have regular bone mineral density tests. For patients eligible for Medicare, routine testing is allowed once every 2 years. The testing frequency can be increased to one year for patients who have rapidly progressing disease, those who are receiving or discontinuing medical therapy to restore bone mass, or have additional risk factors. Dictated by: Terrance Harrington M.D. on 10/04/2024 at 16:50 Approved by: Terrance Harrington M.D. on 10/04/2024 at 16:50
== END ==
DX: Z78.0 Asymptomatic menopausal state (principal); Z13.820 Encounter for screening for osteoporosis; M81.0 Age-related osteoporosis without current pathological fracture
CPT/HCPCS: 77080